=== PATIENT | male | born 1945 | race Caucasian/White ===

== ENCOUNTER 2018-03-10 12:02 | Emergency (ER) | payer MEDICARE, BC ==
[2018-03-10 12:51] LABS: ALBUMIN 3.8 g/dL (3.2-5.5); ALBUMIN/GLOBULIN RATIO 1.2 (1.0-2.2); BILIRUBIN,TOTAL 1.6 mg/dL (0.2-1.0); CALCIUM 9.1 mg/dL (8.5-10.3); TOTAL PROTEIN 6.9 g/dL (6.7-8.2)
[2018-03-10 13:00] LABS: BASOPHILS # (AUTO) 0.1 10^3/uL (0.0-0.1); BASOPHILS % (AUTO) 1.1 %; EOSINOPHILS # (AUTO) 0.2 10^3/uL (0.0-0.7); EOSINOPHILS % (AUTO) 3.3 %; HGB - HEMOGLOBIN 12.2 g/dL (14.0-18.0); LYMPHOCYTES # (AUTO) 0.8 10^3/uL (1.5-3.5); LYMPHOCYTES % (AUTO) 15.1 %; MEAN CORPUSCULAR HEMOGLOBIN 22.2 pg (27.0-31.0); MEAN CORPUSCULAR HGB CONC 32.4 g/dL (32.0-36.0); MEAN CORPUSCULAR VOLUME 68.4 fL (80.0-94.0); MEAN PLATELET VOLUME 9.8 fL (7.4-11.4); MONOCYTES # (AUTO) 0.5 10^3/uL (0.0-1.0); MONOCYTES % (AUTO) 8.1 %; NEUTROPHILS # (AUTO) 4.1 10^3/uL (1.5-6.6); NEUTROPHILS % (AUTO) 72.4 %; PLT - PLATELET COUNT 185 10^3/uL (130-450); RED BLOOD COUNT 5.51 10^6/uL (4.70-6.10); RED CELL DISTRIBUTION WIDTH 16.7 % (12.0-15.0); WHITE BLOOD COUNT 5.6 x10^3/uL (4.8-10.8)
--- NOTE | 2018-03-10 13:06 | ED Physician Documentation ---
PD HPI FOCAL NEURO - Stated complaint Stated Complaint: UNABLE TO SPEAK - Chief complaint Chief Complaint: Neuro - History obtained from History obtained from: Patient, Friend - History of Present Illness Timing - onset: Today Timing - duration: Minutes Timing - details: Now resolved Time of symptom onset unknown: Time of onset unknown Severity of deficit: Mild Contributing factors: negative: Anticoagulated, Vascular dz, Atrial fibrillation Baseline status: positive: A&OX3, ambulatory, indep Similar symptoms before: Has not had sx before Recently seen: Not recently seen - Additional information Additional information: Patient is a 72 year old male with no significant past medical history who is presenting to the emergency department an episode of aphasia this morning. According to patient and family when the patient woke up this morning he was reading the paper and having coffee with his , the states that he was just staring at her. She would ask him questions but he would not say anything. Patient states that he could think of the words but nothing would come out. wanted to come to the emergency department but patient did not want to come. patient went back to bed. When patient got back up he was feeling better but family decided to come get evaluated. Upon initial evaluation in the emergency department patient's symptoms had resolved. Review of Systems Ten Systems: 10 systems reviewed and negative PD PAST MEDICAL HISTORY - Present Medications Home Medications: Ambulatory Orders Medication Instructions Recorded Confirmed Tamsulosin [Flomax] 0.4 mg PO DAILY #30 capsule 03/10/18 - Allergies Allergies/Adverse Reactions: Allergies Allergy/AdvReac Type Severity Reaction Status Date / Time Penicillins Allergy Unknown Verified 03/10/18 12:12 PD ED PE NORMAL - Vitals Vital signs reviewed: Yes - General General: Alert and oriented X 3, No acute distress - HEENT HEENT: Atraumatic, PERRL, Moist mucous membranes - Neck Neck: Supple, no meningeal sign - Cardiac Cardiac: RRR, No murmur - Respiratory Respiratory: No respiratory distress, Clear bilaterally - Abdomen Abdomen: Soft, Non tender, Non distended - Derm Derm: Normal color, Warm and dry, No rash - Extremities Extremities: No deformity - Neuro Neuro: Alert and oriented X 3, ticket manager 2-12 intact, No motor deficit, No sensory deficit, Normal speech Eye Opening: Spontaneous Motor: Obeys Commands Verbal: Oriented GCS Score: 15 - Psych Psych: Normal mood NIHSS - Time Time: 12:44 - Level of Consciousness Level of consciousness: (0) Alert, Keenly responsive LOC Questions: (0) Answers both Q's correct LOC Commands: (0) Performs both correctly - Gaze Best Gaze: (0) Normal - Visual Visual: (0) No loss - Facial Palsy Facial Palsy: (0) Normal, symmetrical movement - Motor Arms (both separate) Motor Arm (right): (0) No drift Motor Arm (left): (0) No drift - Motor Legs (both separate) Motor Leg (right): (0) No drift Motor Leg (left): (0) No drift - Limb Ataxia Limb Ataxia: (0) Absent - Sensory Sensory: (0) Normal - Best Language Best Language: (0) No aphasia - Dysarthria Dysarthria: (0) Normal - Extinction and Inattention (formally neg Extinction and inattention: (0) No abnormality - Total Score/Results Total Score/Result: 0 Results - Vitals Vitals: Vital Signs - 24 hr 03/10/18 03/10/18 12:07 13:43 Temperature 36.4 C L Heart Rate 65 59 L Respiratory 20 16 Rate Blood Pressure 138/69 H 139/76 H O2 Saturation 97 96 Oxygen O2 Source Room air - EKG (time done) 1200 Rate: Rate (enter#) (62) Rhythm: NSR Chrisney: Normal Intervals: Normal VA QRS: Normal Ischemia: Normal ST segments Compare to prior EKG: Old EKG unavailable Computer interpretation: Agree with computer - Labs Labs: Laboratory Tests 03/10/18 03/10/18 03/10/18 12:26 12:26 12:26 WBC RBC Hgb Hct MCV MCH MCHC RDW Plt Count MPV Neut # (Auto) Lymph # (Auto) Sargent # (Auto) Eos # (Auto) Baso # (Auto) Absolute Nucleated RBC Nucleated RBC % Sodium 138 Potassium 4.3 Chloride 108 Carbon Dioxide 25 Anion Gap 5.0 L BUN 28 H Creatinine 1.0 Estimated GFR (MDRD) 73 L Glucose 127 H Calcium 9.1 Total Bilirubin 1.6 H AST 30 ALT 23 Alkaline Phosphatase 66 Troponin I < 0.04 B-Natriuretic Peptide Total Protein 6.9 Albumin 3.8 Globulin 3.1 Albumin/Globulin Ratio 1.2 Lipase 30 TSH 1.21 Urine Color Urine Clarity Urine pH Ur Specific [place] Urine Protein Urine Glucose (UA) Urine Ketones Urine Occult Blood Urine Nitrite Urine Bilirubin Urine Urobilinogen Ur Leukocyte Esterase Ur Microscopic Review Urine Culture Comments 03/10/18 03/10/18 03/10/18 12:46 12:46 13:25 WBC 5.6 RBC 5.51 Hgb 12.2 L Hct 37.7 L MCV 68.4 L MCH 22.2 L MCHC 32.4 RDW 16.7 H Plt Count 185 MPV 9.8 Neut # (Auto) 4.1 Lymph # (Auto) 0.8 L [place] # (Auto) 0.5 Eos # (Auto) 0.2 Baso # (Auto) 0.1 Absolute Nucleated RBC 0.01 Nucleated RBC % 0.1 Sodium Potassium Chloride Carbon Dioxide Anion Gap BUN Creatinine Estimated GFR (MDRD) Glucose Calcium Total Bilirubin AST ALT Alkaline Phosphatase Troponin I B-Natriuretic Peptide 124 H Total Protein Albumin Globulin Albumin/Globulin Ratio Lipase TSH Urine Color YELLOW Urine Clarity CLEAR Urine pH 5.5 Ur Specific [place] 1.025 Urine Protein NEGATIVE Urine Glucose (UA) NEGATIVE Urine Ketones NEGATIVE Urine Occult Blood NEGATIVE Urine Nitrite NEGATIVE Urine Bilirubin NEGATIVE Urine Urobilinogen 0.2 (NORMAL) Ur Leukocyte Esterase NEGATIVE Ur Microscopic Review NOT INDICATED Urine Culture Comments NOT INDICATED - Rads (name of study) ct head Radiology: Final report received (no acute intracranial pathology) PD MEDICAL DECISION MAKING - ED course Complexity details: reviewed old records, reviewed results, re-evaluated patient , considered differential, d/w patient, d/w family ED course: patient was seen and examined at bedside. Patient was well appearing and had no deficits at this time. ekg was performed and showed no acute abnormalities. labs were drawn, ct head was ordered. When patient returned from imaging the results were reviewed. there was no acute abnormalities. Patient's other diagnostics were all within normal limits. Ample time was given to the patient and the family to ask and answer questions. patient required no further inpatient work up at this time and was stable for discharge with outpatient follow up. - Sepsis Event Vital Signs: Vital Signs - 24 hr 03/10/18 03/10/18 12:07 13:43 Temperature 36.4 C L Heart Rate 65 59 L Respiratory 20 16 Rate Blood Pressure 138/69 H 139/76 H O2 Saturation 97 96 Oxygen O2 Source Room air Departure - Departure Disposition: 01 Home, Self Care Clinical Impression: Altered mental status Condition: Good Instructions: ED Transient Ischemic Attack Follow-Up: primary,care provider [Other] - As Needed Prescriptions: Tamsulosin [Flomax] 0.4 mg PO DAILY #30 capsule Comments: Your diagnostics today were within normal limits. there were no major abnormalities on your blood work and you CT of your head was normal. It is difficult to say exactly if this was a TIA (mini stroke) or you were overly tired. You should start a baby aspirin daily. I will also start you on flomax to help with your urination. You should seek the care of a primary care physician. You should return to the emergency department at any time for new, worsening or uncontrollable symptoms. Discharge Date/Time: 03/10/18 14:02
--- NOTE | 2018-03-10 13:17 | CT Report ---
Procedure Date: 03/10/2018 Accession Number: [id number] / [id number] Procedure: CT - Head W/O CPT Code: FULL RESULT: EXAM: CT HEAD EXAM DATE: 03/10/2018 01:08 PM. CLINICAL HISTORY: Aphasia COMPARISON: None. TECHNIQUE: Multiaxial CT images were obtained from the foramen magnum to the vertex. Reformats: Coronal. IV contrast: None. In accordance with CT protocol optimization, one or more of the following dose reduction techniques were utilized for this exam: automated exposure control, adjustment of mA and/or KV based on patient size, or use of iterative reconstructive technique. FINDINGS: Parenchyma: No intraparenchymal hemorrhage. No evidence of mass, midline shift, or CT findings of infarction. Sanchez-white differentiation is distinct. Extraaxial Spaces: Normal for age. No subdural or epidural collections identified. Ventricles: Normal in size and position. Sinuses and Orbits: Mild mucosal thickening, otherwise the imaged paranasal sinuses, orbits, and mastoids show no significant abnormality. Bones: No evidence of fracture or calvarial defect. Other: None. IMPRESSION: 1. No acute intracranial abnormality. 2. Mild mucosal thickening in the visualized paranasal sinuses. RADIA
[2018-03-10 13:31] LABS: BILIRUBIN,URINE NEGATIVE (NEGATIVE); CLARITY,URINE CLEAR (CLEAR); GLUCOSE, URINE (UA) NEGATIVE (NEGATIVE); KETONES,URINE (UA) NEGATIVE (NEGATIVE); LEUKOCYTE ESTERASE, URINE NEGATIVE (NEGATIVE); NITRITE,URINE NEGATIVE (NEGATIVE); OCCULT BLOOD,URINE NEGATIVE (NEGATIVE); PH,URINE 5.5 PH (5.0-7.5); PROTEIN,URINE NEGATIVE (NEGATIVE); UROBILINOGEN,URINE 0.2 (NORMAL) E.U./dL (NORMAL)
[2018-03-10 13:44] VITALS: BP 139/76
== END 2018-03-10 14:02 | disposition home or self-care (01) ==
LOC: ED 12:02
DX: R41.82 Altered mental status, unspecified (principal); R47.01 Aphasia
CPT/HCPCS: 36415; 70450; 80053; 81001; 81003; 83690; 83880; 84443; 84484; 85025; 87086; 93005; 99283; 99284

== ENCOUNTER 2018-04-24 15:29 | Observation (INO) | payer MEDICARE, BC ==
[2018-04-24 16:16] LABS: BASOPHILS # (AUTO) 0.1 10^3/uL (0.0-0.1); BASOPHILS % (AUTO) 0.6 %; EOSINOPHILS # (AUTO) 0.2 10^3/uL (0.0-0.7); EOSINOPHILS % (AUTO) 2.8 %; HGB - HEMOGLOBIN 12.9 g/dL (14.0-18.0); LYMPHOCYTES # (AUTO) 1.1 10^3/uL (1.5-3.5); LYMPHOCYTES % (AUTO) 13.6 %; MEAN CORPUSCULAR HEMOGLOBIN 22.1 pg (27.0-31.0); MEAN CORPUSCULAR HGB CONC 32.8 g/dL (32.0-36.0); MEAN CORPUSCULAR VOLUME 67.5 fL (80.0-94.0); MEAN PLATELET VOLUME 10.1 fL (7.4-11.4); MONOCYTES # (AUTO) 0.5 10^3/uL (0.0-1.0); MONOCYTES % (AUTO) 6.7 %; NEUTROPHILS # (AUTO) 6.2 10^3/uL (1.5-6.6); NEUTROPHILS % (AUTO) 76.3 %; PLT - PLATELET COUNT 196 10^3/uL (130-450); RED BLOOD COUNT 5.81 10^6/uL (4.70-6.10); RED CELL DISTRIBUTION WIDTH 16.7 % (12.0-15.0); WHITE BLOOD COUNT 8.1 x10^3/uL (4.8-10.8)
--- NOTE | 2018-04-24 16:19 | XRAY Report ---
Procedure Date: 04/24/2018 Accession Number: [id number] / [id number] Procedure: XR - Chest 1 View X-Ray CPT Code: 55992 FULL RESULT: EXAM: CHEST RADIOGRAPHY EXAM DATE: 04/24/2018 04:08 PM. CLINICAL HISTORY: New onset afib. COMPARISON: None. TECHNIQUE: 1 view. FINDINGS: Lungs/Pleura: No focal opacities evident. No pleural effusion. No pneumothorax. Mediastinum: Within exam limitations, the cardiomediastinal contour is normal. Other: None. IMPRESSION: Negative for an acute cardiopulmonary process. RADIA
[2018-04-24 16:20] LABS: ALBUMIN 3.6 g/dL (3.2-5.5); ALBUMIN/GLOBULIN RATIO 1.3 (1.0-2.2); BILIRUBIN,TOTAL 1.8 mg/dL (0.2-1.0); CALCIUM 9.1 mg/dL (8.5-10.3); CREATININE 0.9 mg/dL (0.6-1.2); TOTAL PROTEIN 6.4 g/dL (6.7-8.2)
[2018-04-24 16:47] LABS: PLATELET MORPHOLOGY 2+ GIANT PLATELETS (NORMAL)
[2018-04-24 16:48] LABS: PLATELET ESTIMATE, MANUAL NORMAL (130-450,000) (NORMAL)
--- NOTE | 2018-04-24 17:04 | ED Physician Documentation ---
History of Present Illness - Stated complaint Stated Complaint: DIZZINESS - Chief complaint Chief Complaint: Neuro - Additonal information Additional information: hx from pt 73 male to ED with numerous episodes of near syncope today (no fall or injury) and paresthesias to soles of both feet for a week no pain - no [employer] CP AP no fever cough dyspnea no palp was seen mid February for neuro issues and dx possible TIA and started on asa and advised to fup PMD Review of Systems Constitutional: denies: Fever, Chills Eyes: denies: Loss of vision Cardiac: denies: Chest pain / pressure Respiratory: denies: Dyspnea GI: denies: Abdominal Pain, Nausea, Vomiting Musculoskeletal: denies: Neck pain, Back pain Neurologic: reports: Numbness (feet), Near syncope Endocrine: denies: Easy bruising / bleeding Immunocompromised: denies: Immunocompromised PD PAST MEDICAL HISTORY - Past Medical History Past Medical History: Yes Neuro: TIA - Past Surgical History Past Surgical History: No - Present Medications Home Medications: Ambulatory Orders Medication Instructions Recorded Confirmed Tamsulosin [Flomax] 0.4 mg PO DAILY #30 capsule 03/10/18 Aspirin 81 mg PO 04/24/18 - Allergies Allergies/Adverse Reactions: Allergies Allergy/AdvReac Type Severity Reaction Status Date / Time Anesthetics - Amide Type Allergy Anaphylaxis Verified 04/24/18 15:40 Anesthetics - Mercedes Type- Allergy Anaphylaxis Verified 04/24/18 15:40 Parabens Penicillins Allergy Unknown Verified 03/10/18 12:12 - Social History Does the pt smoke?: No Smoking Status: Never smoker Does the pt drink ETOH?: Yes Does the pt have substance abuse?: No - POLST Patient has POLST: No PD ED PE NORMAL - Vitals Vital signs reviewed: Yes - General General: Alert and oriented X 3 - HEENT HEENT: PERRL - Neck Neck: Supple, no meningeal sign - Cardiac Cardiac: Other (irreg, + murmur) - Respiratory Respiratory: Clear bilaterally - Abdomen Abdomen: Soft, Non tender - Neuro Neuro: Alert and oriented X 3, pt skilled 2-12 intact, No motor deficit, No sensory deficit, Normal speech, Other (NIHSS zero) Eye Opening: Spontaneous Motor: Obeys Commands Verbal: Oriented GCS Score: 15 Results - Vitals Vitals: Vital Signs - 24 hr 04/24/18 04/24/18 15:33 17:24 Temperature 36.5 C Heart Rate 78 96 Respiratory 16 20 Rate Blood Pressure 172/81 H 125/84 H O2 Saturation 98 98 Oxygen O2 Source Room air - EKG (time done) 1541 Rate: Rate (enter#) (89) Rhythm: Atrial fibrillation Ischemia: Normal ST segments - Labs Labs: Laboratory Tests 04/24/18 04/24/18 04/24/18 15:55 15:55 15:55 WBC 8.1 RBC 5.81 Hgb 12.9 L Hct 39.2 L MCV 67.5 L MCH 22.1 L MCHC 32.8 RDW 16.7 H Plt Count 196 MPV 10.1 Neut # (Auto) 6.2 Lymph # (Auto) 1.1 L [place] # (Auto) 0.5 Eos # (Auto) 0.2 Baso # (Auto) 0.1 Absolute Nucleated RBC 0.01 Nucleated RBC % 0.1 Manual Slide Review Indicated Platelet Estimate NORMAL (130-450,000) Platelet Morphology 2+ GIANT PLATELETS RBC Morph Micro Appear 2+ MICROCYTOSIS Sodium 139 Potassium 3.9 Chloride 108 Carbon Dioxide 23 Anion Gap 8.0 BUN 23 H Creatinine 0.9 Estimated GFR (MDRD) 83 L Glucose 137 H Calcium 9.1 Total Bilirubin 1.8 H AST 30 ALT 23 Alkaline Phosphatase 64 Troponin I < 0.04 Total Protein 6.4 L Albumin 3.6 Globulin 2.8 Albumin/Globulin Ratio 1.3 Lipase 28 - Rads (name of study) CTH Radiology: See rad report (neg) CXR Radiology: See rad report (NACPD) PD MEDICAL DECISION MAKING - ED course ED course: new onset a fib and new heart murmur with numerous episodes of near syncope he does not feel the palp so unsure duration of a fib and not anticoagulated so not safe to cardiovert will admit for echo and perhaps MRI given dizziness and paresthesias spoke to hospitalist at 6 PM pt updated as well - Sepsis Event Vital Signs: Vital Signs - 24 hr 04/24/18 04/24/18 15:33 17:24 Temperature 36.5 C Heart Rate 78 96 Respiratory 16 20 Rate Blood Pressure 172/81 H 125/84 H O2 Saturation 98 98 Oxygen O2 Source Room air Departure - Departure Disposition: ED Place in Observation Clinical Impression: Near syncope, Heart murmur A-fib Qualifiers: Atrial fibrillation type: unspecified Qualified Code(s): I48.91 - Unspecified atrial fibrillation
--- NOTE | 2018-04-24 17:42 | CT Report ---
Procedure Date: 04/24/2018 Accession Number: [id number] / [id number] Procedure: CT - Head W/O CPT Code: FULL RESULT: EXAM: CT HEAD EXAM DATE: 04/24/2018 05:25 PM. CLINICAL HISTORY: Near syncope paresthesia new a fib. COMPARISON: HEAD W/O 03/10/2018. TECHNIQUE: Multiaxial CT images were obtained from the foramen magnum to the vertex. Reformats: Sagittal and coronal. IV contrast: None. In accordance with CT protocol optimization, one or more of the following dose reduction techniques were utilized for this exam: automated exposure control, adjustment of mA and/or KV based on patient size, or use of iterative reconstructive technique. FINDINGS: Parenchyma: No intraparenchymal hemorrhage. No evidence of mass, midline shift, or CT findings of infarction. Sanchez-white differentiation is distinct. Extraaxial Spaces: Normal for age. No subdural or epidural collections identified. Ventricles: Normal in size and position. Sinuses and Orbits: Imaged paranasal sinuses, orbits, and mastoids show no significant abnormality. Bones: No evidence of fracture or calvarial defect. Other: None. IMPRESSION: Negative nonenhanced head CT. RADIA
[2018-04-24] MEDS ORDERED: ONDANSETRON 4 MG/2 ML VIAL IVP PRN (18:36)
[2018-04-24] MEDS ORDERED: SODIUM CHLORIDE FLUSH 0.9% 10 ML SYRINGE IVP PRN (18:36)
[2018-04-24] MEDS ORDERED: ACETAMINOPHEN 325 MG TABLET PO PRN (18:36)
[2018-04-24] MEDS ORDERED: SODIUM CHLORIDE 0.9% 1,000 ML IV SCH (19:00)
--- NOTE | 2018-04-24 19:08 | HISTORY & PHYSICAL EXAMINATION ---
Chief Complaint - Chief Complaint Chief Complaint: dizziness and lightheaded History of Present Illness - Admitted From Admitted From:: ER - History Obtained From History obtained from: Pt - History of Present Illness HPI Comment/Other: is 73-yrs-old male with a H significance for recent diagnosis of BPH, TIA, who present ER complaints of dizziness, lightheaded, near syncope and paresthesia. Pt report he recently felt very tired every morning. Yesterday when he went to bathroom, he felt so dizziness, lightheaded, near syncope but he denies he had fall, no any injury. He report he went to ER about one month ago, he was diagnosis of TIA at that time. Then he was discharged with aspirin 81 mg daily. He did not have TIA workup at that time per pt report. pt also report he had tingling feeling on the bilateral foot, slow speech. EKG reveals pt had new onset of Afib. pt had EKG about one month ago when he visited ER, it showed SR, no Afib. Pt denies chest pain, palpitation, shortness of breath, fever, chill, cough, headache. History - Past Medical History Neuro: reports: TIA MRSA Hx?: No - Family & Social History Family History: Mother: , Father: , CVA/TIA Family History Comment/Other: pt is living with his at [place]. pt had two children. Living arrangement: At home Living Situation: With spouse/s.o. Social History Notes: pt denies cigarette smoker, alcohol and drug abuse - Substance History Use: Uses substance without health or social issues: NONE - POLST Patient has POLST: No POLST Status: Full Code Meds/Allgy - Home Medications Home Medications: Ambulatory Orders Medication Instructions Recorded Confirmed Tamsulosin [Flomax] 0.4 mg PO DAILY #30 capsule 03/10/18 04/24/18 Aspirin 81 mg PO DAILY 04/24/18 04/25/18 - Allergies Allergies/Adverse Reactions: Allergies Allergy/AdvReac Type Severity Reaction Status Date / Time Anesthetics - Amide Type Allergy Anaphylaxis Verified 04/24/18 15:40 Anesthetics - Mercedes Type- Allergy Anaphylaxis Verified 04/24/18 15:40 Parabens Penicillins Allergy Unknown Verified 03/10/18 12:12 Review of Systems - Constitutional Constitutional: denies: Fatigue, Fever, Chills, Malaise, Weakness, Poor appetite , Diaphoresis, Night sweats - Eyes Eyes: denies: Pain, Irritation, Amaurosis, Blurred vision, Spots in vision, Field loss, Vision loss, Dipolpia - Ears, Nose & Throat Ears, Nose & Throat: denies: Ear pain, Hearing loss, Hearing aids, Tinnitus, Vertigo, Nasal pain, Nasal discharge, Nosebleeds, Nasal obstruction, Postnasal drainage, Dentures, Sore throat, Hoarseness, Mouth lesions, Bleeding gums, Dental decay, Dental pain - Cardiovascular Cariovascular: reports: Lightheadedness, Syncope. denies: Irregular heart rate , Palpitations, Chest pain, Edema, Exertional dyspnea, Decr. exercise tolerance , Orthopnea - Respiratory Respiratory: denies: Cough, Sputum production, Wheezing, Snoring, Hemoptysis, Orthopnea, SOB at rest, SOB with exertion - Gastrointestinal Gastrointestinal: denies: Abdominal pain, Abdominal distention, Constipation, Diarrhea, Change in bowel habits, Rectal bleeding, Black stools, Bloody stools, Nausea, Vomiting, Bile emesis, Coffee grounds emesis, Reflux/heartburn, Bloating - Genitourinary Genitourinary: denies: Dysuria, Frequency, Urgency, Hematuria, Incontinence, Flank pain, Nocturia, Urethral discharge - Musculoskeletal Musculoskeletal: denies: Muscle pain, Back pain, Muscle aches, Stiffness, Limited range of motion, Muscle weakness, Gout, Joint pain - Integumentary Integumentary: denies: Rash, Pruritis, Lesions, Dryness, Lumps, Acne, Pigment changes, Nail changes - Neurological Neurological: reports: Dizziness, Other (tingle at bilateral of foot). denies: General weakness, Focal weakness, Headache, Numbness, Memory problems, Pre- existing deficit, Abnormal gait, Seizures, Incoordination, Slurred speech - Psychiatric Psychiatric: denies: Depression, Anxiety, Suicidal, Delusions, Hallucinations, Homicidal - Endocrine Endocrine: denies: Polyuria, Polydypsia, Polyphagia, Intolerance to cold - Hematologic/Lymphatic Hematologic/Lymphatic: denies: Anemia, Bruising, Petechiae, Blood clots, Lymphadenopathy, Bleeding tendencies Exam - Vital Signs Reviewed Vital Signs: Yes - Physical Exam General Appearance: positive: No acute distress, Alert. negative: Lethargic Eyes Bilateral: positive: Normal inspection, PERRL, No lid inflammation, Conjunctivae nml ENT: positive: ENT inspection nml, Pharynx nml, No signs of dehydration. negative: Purulent nasal drainage, Pharyngeal erythema, Oral lesions Neck: positive: Nml inspection, Thyroid nml, No JVD, Trachea midline. negative : Thyromegaly, Lymphadenopathy (R), Lymphadenopathy (L), Stiff neck, Carotid bruit, Swelling/bruising, Tracheal deviation Respiratory: positive: Chest non-tender, No respiratory distress, Breath sounds nml. negative: Wheezes, Rhonchi Cardiovascular: positive: Regular rate & rhythm, Diastolic murmur. negative: No gallop, Irregularly irregular, Extrasystoles, Tachycardia, Bradycardia, JVD present, Systolic murmur Peripheral Pulses: positive: 2+ Abdomen: positive: Non-tender, No organomegaly, Nml bowel sounds, No distention. negative: Tenderness, Guarding, Rebound Back: positive: Nml inspection. negative: CVA tenderness (R), CVA tenderness (L ) Skin: positive: Color nml, No rash, Warm, Dry. negative: Cyanosis, Diaphoresis , Pallor Extremities: positive: Non-tender, Full ROM, Nml appearance. negative: Calf tenderness, Joint swelling, Makenzie's sign/cords Neurologic/Psychiatric: positive: Oriented x3, Motor nml, Sensation nml, Mood/ affect nml. negative: Weakness, Sensory loss, Facial droop, Slurred/abnml speech, Depressed mood/affect Conclusion/Plan - Problem List (1) Near syncope Conclusion/Plan: pt report near syncope, but no injury or loss of consciousness. EKG reveal new onset of Afib order ECHO, pt also complain tingle neurological symptoms, order US of Carotid, and MRI of brain tele, vital monitor orthostatic BP check (2) A-fib Conclusion/Plan: unknown exact time pt start to have new onset of Afib. start Xarelto for 3-4 weeks, follow up [facility] for possible conversion pt's HR is around 90-100 at rest, start low dosage of Cardizem 30mg QID Qualifiers: Atrial fibrillation type: unspecified Qualified Code(s): I48.91 - Unspecified atrial fibrillation (3) Heart murmur Conclusion/Plan: order ECHO, follow up (4) Distal paresthesia Conclusion/Plan: pt had TIA about one month ago, but without MRI, pt complaint parethesia and with near syncope order MRI, follow up (5) Hx of TIA (transient ischemic attack) and stroke Conclusion/Plan: pt did not have TIA workup, pt present parethesia and syncope near today order MRI, ECHO, US of carotid (6) BPH (benign prostatic hyperplasia) Conclusion/Plan: resume Flomax (7) DVT prophylaxis Conclusion/Plan: SCD and Lovenox (8) Full code status Conclusion/Plan: pt request full code - Lab Results Fish Bones: 04/25/18 07:35 04/25/18 07:35 Core Measures - Anticipated LOS I expect patient to be DC'd or transferred within 96 hours.: Yes - DVT/VTE - Prophylaxis VTE/DVT Device ordered at admit?: Yes VTE/DVT Prophylaxis med ordered at admit?: Yes
[2018-04-25] MEDS: TAMSULOSIN 0.4 MG CAPSULE PO SCH ×2 (01:09→08:08)
--- NOTE | 2018-04-25 01:23 | Ultrasound Report ---
Procedure Date: 04/25/2018 Accession Number: [id number] Procedure: US - Carotid Doppler Complete CPT Code: FULL RESULT: EXAM: BILATERAL CAROTID AND VERTEBRAL ARTERY DUPLEX DOPPLER ULTRASOUND: EXAM DATE: 04/24/2018 11:30 PM CLINICAL HISTORY: Near syncope. COMPARISON: None. TECHNIQUE: Grayscale imaging, color Doppler, and duplex spectral Doppler were used to evaluate the carotid and vertebral arteries bilaterally. Static images were obtained. FINDINGS: Mild calcified plaque within the carotid bulbs bilaterally. Peak systolic velocities and ICA/CCA ratios are within normal limits. Normal antegrade flow is present in bilateral vertebral arteries. VELOCITIES (cm/sec): Right: RCCA Prox: PSV 82.8 cm/sec. RCCA Dist: PSV 63.5 cm/sec, EDV 18.4 cm/sec. RECA: PSV 96.6 cm/sec. R Bulb: PSV 48.6 cm/sec, EDV 18.9 cm/sec, ICA/CCA ratio 0.8. CHANO Prox: PSV 67.9 cm/sec, EDV 32.5 cm/sec, ICA/CCA ratio 1.1. CHANO Mid: PSV 96.0 cm/sec, EDV 38.3 cm/sec, ICA/CCA ratio 1.5. CHANO Dist: PSV 67.9 cm/sec, EDV 37.5 cm/sec, ICA/CCA ratio 1.0. RVA: PSV 24.9 cm/sec. RVA flow direction: Antegrade. Left: LCCA Prox: PSV 93.3 cm/sec. LCCA Dist: PSV 60.6 cm/sec, EDV 22.4 cm/sec. LECA: PSV 72.9 cm/sec. L Bulb: PSV 46.2 cm/sec, EDV 23.1 cm/sec, ICA/CCA ratio 0.8. LICA Prox: PSV 52.7 cm/sec, EDV 18.8 cm/sec, ICA/CCA ratio 0.9. LICA Mid: PSV 69.3 cm/sec, EDV 36.8 cm/sec, ICA/CCA ratio 1.1. LICA Dist: PSV 58.5 cm/sec, EDV 18.8 cm/sec, ICA/CCA ratio 1.0. LVA: PSV 33 cm/sec. LVA flow direction: Antegrade. ICA diameter stenosis: Right: <50% by velocity and <70% by NASCET criteria. Left: <50% by velocity and <70% by NASCET criteria. IMPRESSION: 1. Mild bilateral carotid bulb atheromatous plaque. 2. In the right carotid artery there are no elevated carotid artery velocities to suggest hemodynamically significant stenosis. 3. In the left carotid artery there are no elevated carotid artery velocities to suggest hemodynamically significant stenosis. 4. Normal antegrade flow is present in bilateral vertebral arteries. General Recommendations: Stenosis =50% ICA - Follow-up ultrasound 6-12 months Stenosis <50% ICA - High Risk Patient with plaque - Follow-up ultrasound 1-2 years Normal Study but High Risk Patient - Follow-up ultrasound 3-5 years Management recommendations and diagnostic criteria are based on current IAC endorsed standards in Carotid Artery Stenosis: Grayscale and Doppler Ultrasound Diagnosis. Validated velocity measurements with angiographic measurements and velocity criteria are extrapolated from diameter data as defined by the Society of Radiologists in Ultrasound Consensus Conference Radiology 2003; 229;340-346. RADIA
[2018-04-25] MEDS: SODIUM CHLORIDE FLUSH 0.9% 10 ML SYRINGE IVP SCH ×2 (05:46→08:09)
[2018-04-25 07:49] LABS: BASOPHILS # (AUTO) 0.1 10^3/uL (0.0-0.1); BASOPHILS % (AUTO) 1.1 %; EOSINOPHILS # (AUTO) 0.2 10^3/uL (0.0-0.7); EOSINOPHILS % (AUTO) 3.3 %; LYMPHOCYTES # (AUTO) 1.3 10^3/uL (1.5-3.5); LYMPHOCYTES % (AUTO) 19.5 %; MEAN CORPUSCULAR VOLUME 68.6 fL (80.0-94.0); MEAN PLATELET VOLUME 9.8 fL (7.4-11.4); MONOCYTES # (AUTO) 0.4 10^3/uL (0.0-1.0); MONOCYTES % (AUTO) 6.9 %; NEUTROPHILS # (AUTO) 4.5 10^3/uL (1.5-6.6); NEUTROPHILS % (AUTO) 69.2 %; PLT - PLATELET COUNT 174 10^3/uL (130-450); RED BLOOD COUNT 5.94 10^6/uL (4.70-6.10); RED CELL DISTRIBUTION WIDTH 16.7 % (12.0-15.0); WHITE BLOOD COUNT 6.4 x10^3/uL (4.8-10.8)
[2018-04-25 07:59] LABS: ALBUMIN 3.5 g/dL (3.2-5.5); ALBUMIN/GLOBULIN RATIO 1.3 (1.0-2.2); BILIRUBIN,TOTAL 2.7 mg/dL (0.2-1.0); CREATININE 0.9 mg/dL (0.6-1.2); TOTAL PROTEIN 6.3 g/dL (6.7-8.2)
[2018-04-25] MEDS ORDERED: TAMSULOSIN 0.4 MG CAPSULE PO SCH (08:16)
[2018-04-25] MEDS ORDERED: ENOXAPARIN 40 MG/0.4 ML SYRINGE SUBQ SCH (09:00)
[2018-04-25] MEDS ORDERED: FAMOTIDINE 20 MG TABLET PO SCH (09:00)
[2018-04-25] MEDS ORDERED: ASPIRIN 325 MG TABLET PO SCH (09:00)
[2018-04-25] MEDS ORDERED: POLYETHYLENE GLYCOL 3350 17 GM PACKET PO SCH (09:00)
[2018-04-25 10:32] LABS: MEAN RETIC VALUE 93.8; RED BLOOD COUNT 5.96 10^6/uL (4.70-6.10)
[2018-04-25 11:02] LABS: % IRON SATURATION 39 % (20-50); IRON 127 ug/dL (45-182); TOTAL IRON BINDING CAPACITY 326 ug/dL (250-450); TRANSFERRIN 233 mg/dL (180-329)
[2018-04-25 11:09] LABS: FERRITIN 262.6 ng/mL (23.9-336.2)
[2018-04-25] MEDS: FERROUS SULFATE 325 MG TABLET PO SCH ×2 (11:45→16:35)
--- NOTE | 2018-04-25 11:53 | MRI Report ---
Procedure Date: 04/25/2018 Accession Number: [id number] / [id number] Procedure: MRI - Brain W/O CPT Code: FULL RESULT: EXAM: MRI BRAIN WITHOUT CONTRAST EXAM DATE: 04/25/2018 11:22 AM. CLINICAL HISTORY: 73-year-old man with TIA. Patient complains of dizziness and lethargy. COMPARISON: Noncontrast head CT on 04/24/2018. TECHNIQUE: Multiplanar, multisequence T1-weighted and fluid-sensitive MR sequences of the brain were performed. Sequences optimized for routine evaluation. Other: None. IV Contrast: None. FINDINGS: Parenchyma: No evidence of acute infarct on diffusion weighted sequence. The parenchyma demonstrates minimal burden of nonspecific FLAIR hyperintensities in the deep cerebral and periventricular white matter, less than commonly seen in this age group. The infratentorial parenchyma is normal in appearance. No evidence of prior hemorrhage on susceptibility weighted sequence. Pituitary: Unremarkable. Ventricles and Extra-axial Spaces: Ventricles are symmetric and normal in size for age. Extra-axial spaces are unremarkable. Orbits: Unremarkable. Sinuses: Mild scattered mucosal thickening is present in the paranasal sinuses. Mastoid air cells are clear. Major Vascular Flow Voids: Intact. IMPRESSION: 1. No acute intracranial abnormality. Specifically, no evidence of acute infarct, hemorrhage, or mass lesion. RADIA
[2018-04-25] MEDS ORDERED: diltiaZEM 30 MG TABLET PO SCH (14:00)
--- NOTE | 2018-04-25 16:08 | Discharge Plan ---
Discharge Plan Disposition: Home, Self Care Condition: Poor Prescriptions: diltiaZEM CD [Cardizem Cd] 120 mg PO DAILY #15 capsule Rivaroxaban [Xarelto] 20 mg PO DAILY #30 tablet Diet: Regular Activity Restrictions: Activity as Tolerated Shower Restrictions: No (fall precaution) Instruction Topics: Atrial Fibrillation, Diltiazem tablets, Rivaroxaban oral tablets Additional Instructions or Follow Up instructions: You may follow up your PCP in one week, follow up spanish interpreter/translator as out-pt. Should your symptoms return or worsen, you may present ER or call 911 for help. No Smoking: If you smoke, Please STOP! Call for help. Follow-up with: Tim Ferreira MD [Primary Care Provider] -
--- NOTE | 2018-04-25 16:21 | DISCHARGE SUMMARY ---
Discharge Summary Discharge Date: 04/25/18 Discharging Provider: PORTER Primary Care Provider: Dr. Tim Ferreira Condition at Discharge: Poor Discharge Disposition: 01 Home, Self Care Discharge Facility Name: home - DIAGNOSES Admission Diagnoses: (1) Near syncope (2) A-fib (3) Heart murmur (4) Distal paresthesia (5) Hx of TIA (transient ischemic attack) and stroke (6) BPH (benign prostatic hyperplasia) Discharge Diagnoses with Status of Each Condition: (1) Near syncope no more in hospital course. pt's MRI of head, us of Carotid, Ct of head, ECHO are unremarkable (2) A-fib RVR new onset of afib. ER did not do cardiac conversion because unknown if any blood clots in heart chamber. HR has around 100, start 120mg Cardizem. Pt's CHADS score is 2/6 but pt is new onset of AFIB. Start on Xarelto, see chief scientist in one month, new onset afib may be converted (3) Heart murmur stable, ECHO unremarkable (4) Distal paresthesia resolved, MRI without acute findings (5) Hx of TIA (transient ischemic attack) and stroke stable.pt's MRI of head, us of Carotid, Ct of head, ECHO are unremarkable (6) BPH (benign prostatic hyperplasia) stable, continue flomax - HPI History of Present Illness: is 73-yrs-old male with a PMH significance for recent diagnosis of BPH, TIA, who present ER complaints of dizziness, lightheaded, near syncope and paresthesia. Pt report he recently felt very tired every morning. Yesterday when he went to bathroom, he felt so dizziness, lightheaded, near syncope but he denies he had fall, no any injury. He report he went to ER about one month ago, he was diagnosis of TIA at that time. Then he was discharged with aspirin 81 mg daily. He did not have TIA workup at that time per pt report. pt also report he had tingling feeling on the bilateral foot, slow speech. EKG reveals pt had new onset of Afib. pt had EKG about one month ago when he visited ER, it showed SR, no Afib. Pt denies chest pain, palpitation, shortness of breath, fever, chill, cough, headache. - ALLERGIES Allergies/Adverse Reactions: Allergies Allergy/AdvReac Type Severity Reaction Status Date / Time Anesthetics - Amide Type Allergy Anaphylaxis Verified 04/24/18 15:40 Anesthetics - Mercedes Type- Allergy Anaphylaxis Verified 04/24/18 15:40 Parabens Penicillins Allergy Unknown Verified 03/10/18 12:12 - MEDICATIONS Home Medications: Ambulatory Orders Medication Instructions Recorded Confirmed Tamsulosin [Flomax] 0.4 mg PO DAILY #30 capsule 03/10/18 04/24/18 Rivaroxaban [Xarelto] 20 mg PO DAILY #30 tablet 04/25/18 diltiaZEM CD [Cardizem Cd] 120 mg PO DAILY #15 capsule 04/25/18 - PHYSICAL EXAM AT DISCHARGE General Appearance: positive: No acute distress, Alert. negative: Lethargic Eyes Bilateral: positive: Normal inspection, PERRL, No lid inflammation, Conjunctivae nml ENT: positive: ENT inspection nml, Pharynx nml, No signs of dehydration. negative: Purulent nasal drainage, Pharyngeal erythema, Oral lesions Neck: positive: Nml inspection, Thyroid nml, No JVD, Trachea midline. negative : Thyromegaly, Lymphadenopathy (R), Lymphadenopathy (L), Stiff neck, Swelling/ bruising, Tracheal deviation Respiratory: positive: Chest non-tender, No respiratory distress, Breath sounds nml. negative: Wheezes, Rales, Rhonchi Cardiovascular: positive: Regular rate & rhythm, No murmur, No gallop. negative : Irregularly irregular, Extrasystoles, Tachycardia, Bradycardia, JVD present, Systolic murmur, Diastolic murmur Peripheral Pulses: positive: 2+ Abdomen: positive: Non-tender, No organomegaly, Nml bowel sounds, No distention. negative: Tenderness, Guarding, Rebound Back: positive: Nml inspection. negative: CVA tenderness (R), CVA tenderness (L ) Skin: positive: Color nml, No rash, Warm, Dry. negative: Cyanosis, Diaphoresis , Pallor, Skin rash Extremities: positive: Non-tender, Full ROM, Nml appearance. negative: Calf tenderness, Joint swelling, Makenzie's sign/cords Neurologic/Psychiatric: positive: Oriented x3, Motor nml, Sensation nml, Mood/ affect nml. negative: Weakness, Sensory loss, Facial droop, Slurred/abnml speech, Depressed mood/affect - LABS Result Diagrams: 04/25/18 07:35 04/25/18 07:35 - FOLLOW UP Follow Up: You may follow up your PCP in one week, follow up chief scientist as out-pt in one month. Should your symptoms return or worsen, you may present ER or call 911 for help. - TIME SPENT Time Spent in Discharge (Minutes): 50
[2018-04-25] MEDS ORDERED: RIVAROXABAN 10 MG TABLET PO SCH (17:00)
[2018-04-25 17:02] VITALS: BP 105/73
== END 2018-04-25 17:15 | disposition home or self-care (01) ==
LOC: ED 15:29 → MS2 18:36
PROVIDERS: ADMIT Nurse Practitioner Gerontology; ATTEND Nurse Practitioner Gerontology
DX: R55 Syncope and collapse (principal); I48.91 Unspecified atrial fibrillation; I38 Endocarditis, valve unspecified; R20.2 Paresthesia of skin; N40.0 Benign prostatic hyperplasia without lower urinary tract symptoms; Z79.82 Long term (current) use of aspirin; Z82.3 Family history of stroke; Z79.899 Other long term (current) drug therapy
CPT/HCPCS: 36415; 70450; 70551; 71045; 80053; 82607; 82728; 83540; 83615; 83690; 83735; 84443; 84466; 84484; 85025; 85044; 93005; 93306; 93880; 96360; 96361; 96372; 99284; A9270; G0378; J1650

== ENCOUNTER 2018-12-19 16:24 | Emergency (ER) | payer MEDICARE, BC ==
[2018-12-19 17:14] LABS: BASOPHILS # (AUTO) 0.1 10^3/uL (0.0-0.1); EOSINOPHILS # (AUTO) 0.2 10^3/uL (0.0-0.7); EOSINOPHILS % (AUTO) 2.9 %; HGB - HEMOGLOBIN 13.1 g/dL (14.0-18.0); LYMPHOCYTES % (AUTO) 16.4 %; MEAN CORPUSCULAR HEMOGLOBIN 21.5 pg (27.0-31.0); MEAN CORPUSCULAR HGB CONC 31.5 g/dL (32.0-36.0); MEAN CORPUSCULAR VOLUME 68.1 fL (80.0-94.0); MEAN PLATELET VOLUME 9.9 fL (7.4-11.4); MONOCYTES # (AUTO) 0.6 10^3/uL (0.0-1.0); MONOCYTES % (AUTO) 10.1 %; NEUTROPHILS # (AUTO) 4.3 10^3/uL (1.5-6.6); NEUTROPHILS % (AUTO) 69.6 %; PLT - PLATELET COUNT 184 10^3/uL (130-450); RED CELL DISTRIBUTION WIDTH 16.8 % (12.0-15.0); WHITE BLOOD COUNT 6.2 x10^3/uL (4.8-10.8)
[2018-12-19 17:25] LABS: ALBUMIN 3.9 g/dL (3.2-5.5); ALBUMIN/GLOBULIN RATIO 1.4 (1.0-2.2); BILIRUBIN,TOTAL 1.6 mg/dL (0.2-1.0); CALCIUM 8.9 mg/dL (8.5-10.3); CREATININE 1.1 mg/dL (0.6-1.2); TOTAL PROTEIN 6.6 g/dL (6.7-8.2)
[2018-12-19 17:31] LABS: PLATELET ESTIMATE, MANUAL NORMAL (130-450,000) (NORMAL); PLATELET MORPHOLOGY NORMAL APPEARANCE (NORMAL)
--- NOTE | 2018-12-19 18:22 | XRAY Report ---
Reason: palpatations Procedure Date: 12/19/2018 Accession Number: [id number] / [id number] Procedure: XR - Chest 2 View X-Ray CPT Code: 36716 FULL RESULT: EXAM: CHEST RADIOGRAPHY EXAM DATE: 12/19/2018 06:06 PM. CLINICAL HISTORY: Palpitations. COMPARISON: CHEST 1 VIEW 04/24/2018 3:57 PM. TECHNIQUE: 2 views. FINDINGS: Lungs/Pleura: No focal opacities evident. No pleural effusion. No pneumothorax. Lungs are well expanded. Mediastinum: Heart and mediastinal contours are unremarkable. Other: None. IMPRESSION: No acute intrathoracic plain film abnormality. RADIA
--- NOTE | 2018-12-19 18:49 | ED Physician Documentation ---
PD HPI CHEST PAIN - Stated complaint Stated Complaint: Irregular HR - Chief complaint Chief Complaint: Cardiac - History obtained from History obtained from: Patient - History of Present Illness Timing - onset: Today Timing - onset during: Rest (this morning noted a feeling of fatigue and then took his pulse and noted it irregular though rate about 70-80. He says heart rate usually slow at 40s-50s. Has had episode of atrial fib last summer and is not aware of other episodes since. On Metoprolol. He did feel lightheaded this morning too and his BP was low at 70 systolic by home cuff. Did not feel pre- syncopal. No chest pain. Says BP typically about 110 systolic. BP is good on arrival here and is not feeling lightheaded.) Timing - duration: Hours (he waited to see if heart rhythm would become more regular but it has stayed irregular for about 8 hours so to ER after calling Cardiology office and being directed to ER.) Timing - details: Abrupt onset, Still present Quality: Other (pressure and just feeling fatigue mostly) Associated symptoms: Feeling faint / dizzy, General Weakness, Palpitations Similar symptoms before: Diagnosis (atrial fib episode last summer) Review of Systems Constitutional: denies: Fever Nose: denies: Rhinorrhea / runny nose, Congestion Throat: denies: Sore throat Respiratory: denies: Cough GI: denies: Abdominal Pain, Nausea, Vomiting, Diarrhea, Bloody / black stool Neurologic: reports: Generalized weakness. denies: Focal weakness, Numbness, Near syncope, Altered mental status PD PAST MEDICAL HISTORY - Past Medical History Past Medical History: Yes Cardiovascular: Atrial fibrillation Neuro: TIA : Benign prostate hypertrophy - Past Surgical History Past Surgical History: No HEENT: Other - Present Medications Home Medications: Ambulatory Orders Medication Instructions Recorded Confirmed Tamsulosin [Flomax] 0.4 mg PO DAILY #30 capsule 03/10/18 12/19/18 Apixaban [Eliquis] 5 mg PO 12/19/18 Metoprolol Succinate 50 mg PO 12/19/18 - Allergies Allergies/Adverse Reactions: Allergies Allergy/AdvReac Type Severity Reaction Status Date / Time Anesthetics - Amide Type Allergy Anaphylaxis Verified 04/24/18 15:40 Anesthetics - Mercedes Type- Allergy Anaphylaxis Verified 04/24/18 15:40 Parabens Penicillins Allergy Unknown Verified 03/10/18 12:12 - Social History Does the pt smoke?: No Smoking Status: Never smoker Does the pt drink ETOH?: Yes Does the pt have substance abuse?: No - POLST Patient has POLST: No POLST Status: Full Code PD ED PE NORMAL - Vitals Vital signs reviewed: Yes - General General: Alert and oriented X 3, No acute distress, Well developed/nourished - HEENT HEENT: Moist mucous membranes, Pharynx benign - Neck Neck: Supple, no meningeal sign, No adenopathy - Cardiac Cardiac: No murmur. No: RRR (controlled rate but irregular rhythm.) - Respiratory Respiratory: Clear bilaterally - Abdomen Abdomen: Soft, Non tender - Back Back: No CVA TTP - Derm Derm: Normal color, Warm and dry - Extremities Extremities: No deformity, No tenderness to palpate, Normal ROM s pain, No edema, No calf tenderness / cord - Neuro Neuro: Alert and oriented X 3, No motor deficit, Normal speech Results - Vitals Vitals: Vital Signs - 24 hr 12/19/18 12/19/18 12/19/18 16:43 17:25 18:15 Temperature 36.9 C Heart Rate 86 75 76 Respiratory 18 14 16 Rate Blood Pressure 109/67 111/76 114/81 H O2 Saturation 100 97 12/19/18 12/19/18 12/19/18 18:17 19:00 20:29 Temperature 36.7 C Heart Rate 68 73 50 L Respiratory 16 16 16 Rate Blood Pressure 104/78 128/99 H 115/76 O2 Saturation 96 99 98 Oxygen O2 Source Room air - EKG (time done) 16:52 Rate: Rate (enter#) (71) Rhythm: Atrial fibrillation [place]: Normal Intervals: Normal [place] QRS: Normal Ischemia: Normal ST segments. No: ST elevation c/w ischemia, ST depression 20:01 Rate: Rate (enter#) (46) Rhythm: Sinus bradycardia [place]: Normal Intervals: Normal [place] QRS: Normal Ischemia: Normal ST segments. No: ST elevation c/w ischemia, ST depression Compare to prior EKG: Changed from prior EKG (converted to NSR) - Labs Labs: Laboratory Tests 12/19/18 12/19/18 12/19/18 17:03 17:03 17:03 WBC 6.2 RBC 6.10 Hgb 13.1 L Hct 41.5 L MCV 68.1 L MCH 21.5 L MCHC 31.5 L RDW 16.8 H Plt Count 184 MPV 9.9 Neut # (Auto) 4.3 Lymph # (Auto) 1.0 L [place] # (Auto) 0.6 Eos # (Auto) 0.2 Baso # (Auto) 0.1 Absolute Nucleated RBC 0.01 Nucleated RBC % 0.2 Manual Slide Review Indicated Platelet Estimate NORMAL (130-450,000) Platelet Morphology NORMAL APPEARANCE RBC Morph Micro Appear 1+ AKANKSHA CELLS Sodium 141 Potassium 3.9 Chloride 107 Carbon Dioxide 26 Anion Gap 8.0 BUN 22 H Creatinine 1.1 Estimated GFR (MDRD) 66 L Glucose 142 H Calcium 8.9 Total Bilirubin 1.6 H AST 30 ALT 23 Alkaline Phosphatase 90 Troponin I < 0.04 Total Protein 6.6 L Albumin 3.9 Globulin 2.7 Albumin/Globulin Ratio 1.4 Lipase 31 PD MEDICAL DECISION MAKING - ED course Complexity details: considered differential (just starting the Procainamide infusion (really not any got in) and he converted to NSR with sohail rate, which he says is usual for him.He felt okay. BP good. He is now good to go home. Repeat ECG done to show baseline pattern. ), d/w patient Departure - Departure Disposition: 01 Home, Self Care Clinical Impression: Paroxysmal atrial fibrillation Condition: Stable Record reviewed to determine appropriate education?: Yes Instructions: ED Afib Follow-Up: Jass Prado MD [Primary Care Provider] - Comments: Continue your usual medications. Do not take your nighttime dose of metoprolol tonight since you are to take it today. Stay well-hydrated. Follow-up with your Cold Strip Feeder if you have recurrent episodes and return to the ER if needed. Contact your Cardiology office tomorrow to tell them of the episode. Discharge Date/Time: 12/19/18 20:53
[2018-12-19] MEDS ORDERED: SODIUM CHLORIDE 0.9% 1,000 ML IV ONE (19:15)
[2018-12-19] MEDS ORDERED: PROCAINAMIDE 100 MG/1 ML 10 ML MDV IV STA (19:15)
[2018-12-19] MEDS ORDERED: PROCAINAMIDE 1,000 MG in SODIUM CHLORIDE 0.9% 240 ML IV STA (19:35)
[2018-12-19 20:30] VITALS: BP 115/76
== END 2018-12-19 20:53 | disposition home or self-care (01) ==
LOC: ED 16:24
DX: I48.0 Paroxysmal atrial fibrillation (principal); R00.1 Bradycardia, unspecified; Z79.01 Long term (current) use of anticoagulants; Z86.73 Personal history of transient ischemic attack (TIA), and cerebral infarction without residual deficits
CPT/HCPCS: 36415; 71046; 80053; 83690; 84484; 85025; 93005; 99283; 99284; J2690

== ENCOUNTER 2019-04-12 21:18 | Inpatient (IN) | payer MEDICARE, BC ==
[2019-04-12 22:01] LABS: EOSINOPHILS # (AUTO) 0.2 10^3/uL (0.0-0.7); EOSINOPHILS % (AUTO) 4.3 %
[2019-04-12 22:04] LABS: BASOPHILS % (AUTO) 0.8 %; LYMPHOCYTES # (AUTO) 0.8 10^3/uL (1.5-3.5); LYMPHOCYTES % (AUTO) 16.1 %; MEAN CORPUSCULAR HEMOGLOBIN 21.2 pg (27.0-31.0); MEAN CORPUSCULAR HGB CONC 30.9 g/dL (32.0-36.0); MEAN CORPUSCULAR VOLUME 68.7 fL (80.0-94.0); MONOCYTES # (AUTO) 0.5 10^3/uL (0.0-1.0); MONOCYTES % (AUTO) 10.6 %; NEUTROPHILS # (AUTO) 3.5 10^3/uL (1.5-6.6); PLT - PLATELET COUNT 214 10^3/uL (130-450); RED BLOOD COUNT 5.18 10^6/uL (4.70-6.10); RED CELL DISTRIBUTION WIDTH 18.3 % (12.0-15.0); WHITE BLOOD COUNT 5.1 x10^3/uL (4.8-10.8)
[2019-04-12 22:12] LABS: ALBUMIN 3.4 g/dL (3.2-5.5); ALBUMIN/GLOBULIN RATIO 1.2 (1.0-2.2); BILIRUBIN,TOTAL 1.3 mg/dL (0.2-1.0); CALCIUM 8.9 mg/dL (8.5-10.3); CREATININE 4.2 mg/dL (0.6-1.2); TOTAL PROTEIN 6.3 g/dL (6.7-8.2)
--- NOTE | 2019-04-12 22:20 | XRAY Report ---
Reason: Chest Pain Procedure Date: 04/12/2019 Accession Number: [id number] / [id number] Procedure: XR - Chest 1 View X-Ray CPT Code: 05226 FULL RESULT: EXAM: CHEST RADIOGRAPHY EXAM DATE: 04/12/2019 09:47 PM. CLINICAL HISTORY: Chest Pain. COMPARISON: CHEST 2 VIEW 12/19/2018 5:56 PM. TECHNIQUE: 1 view. FINDINGS: Lungs/Pleura: No dense consolidation. No large effusion or pneumothorax. No pulmonary edema. Mediastinum: Heart and mediastinal contours are unremarkable. Other: None. IMPRESSION: No acute radiographic pulmonary abnormalities. RADIA
[2019-04-12] MEDS ORDERED: SODIUM CHLORIDE 0.9% 1,000 ML IV ONE (22:41)
[2019-04-12] MEDS ORDERED: diltiaZEM INJ 5 MG/ML VIAL IVP STA (22:54)
--- NOTE | 2019-04-12 22:54 | ED Physician Documentation ---
History of Present Illness - Stated complaint Stated Complaint: SKIPPING HEART - Chief complaint Chief Complaint: Cardiac - History obtained from History obtained from: Patient, Family - History of Present Illness Timing: How many days ago (2) - Additonal information Additional information: 73-year-old male with a history of intermittent atrial fibrillation on Eliquis has developed atrial fibrillation 2 days ago and he has been tolerating it until this evening when he was at rest he felt an episode for about 10 minutes of a chill inside of his body. He states he really did not feel well and this past. He states that while he was feeling this he felt his pulse it was very rapid and very irregular more than he is ever felt previously. He has had intermittent atrial fibrillation last episode was in November of this year which converted after beginning a an infusion of procainamide. The patient has had a fall 2 weeks ago he was pulling a blackberry cummins and the blackberry cummins letter ago he stumbled backwards 10 to 15 feet and then fell onto his back.He has been into see his chiropractor and his pain is somewhat better in his back. He acknowledges urinating a lot. Review of Systems Constitutional: reports: Fatigue. denies: Fever Eyes: denies: Decreased vision Ears: denies: Ear pain Nose: denies: Rhinorrhea / runny nose, Congestion Throat: denies: Sore throat Cardiac: denies: Chest pain / pressure, Palpitations Respiratory: denies: Dyspnea, Cough GI: denies: Abdominal Pain, Nausea, Vomiting : reports: Dysuria (back hurts with urination), Frequency Skin: denies: Rash Musculoskeletal: reports: Back pain. denies: Neck pain, Extremity pain Neurologic: denies: Generalized weakness, Focal weakness, Numbness PD PAST MEDICAL HISTORY - Past Medical History Cardiovascular: Atrial fibrillation Neuro: TIA : Benign prostate hypertrophy - Past Surgical History Past Surgical History: No HEENT: Other - Present Medications Home Medications: Ambulatory Orders Medication Instructions Recorded Confirmed Tamsulosin [Flomax] 0.4 mg PO DAILY #30 capsule 03/10/18 12/19/18 Apixaban [Eliquis] 5 mg PO 12/19/18 Metoprolol Succinate 50 mg PO 12/19/18 - Allergies Allergies/Adverse Reactions: Allergies Allergy/AdvReac Type Severity Reaction Status Date / Time Anesthetics - Amide Type Allergy Anaphylaxis Verified 07/30/18 15:40 Anesthetics - Mercedes Type- Allergy Anaphylaxis Verified 04/24/18 15:40 Parabens Penicillins Allergy Unknown Verified 03/10/18 12:12 - Social History Does the pt smoke?: No Smoking Status: Never smoker Does the pt drink ETOH?: Yes Does the pt have substance abuse?: No - POLST Patient has POLST: No POLST Status: Full Code PD ED PE NORMAL - Vitals Vital signs reviewed: Yes (tachy and hypertensive ) - General General: Alert and oriented X 3, No acute distress, Well developed/nourished - HEENT HEENT: Atraumatic, PERRL, EOMI - Neck Neck: Supple, no meningeal sign, No bony TTP - Cardiac Cardiac: No murmur, Other (irregularly irregular and rapid at 100 at the time of my exam ) - Respiratory Respiratory: No respiratory distress, Clear bilaterally - Abdomen Abdomen: Normal bowel sounds, Soft, Non tender, Other (The bladder is distended and palpable to the umbilicus) - Back Back: No CVA TTP, No spinal TTP - Derm Derm: Normal color, Warm and dry, No rash - Extremities Extremities: No deformity, No tenderness to palpate, Normal ROM s pain, No edema, No calf tenderness / cord - Neuro Neuro: Alert and oriented X 3, 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, No motor deficit, No sensory deficit, Normal speech Eye Opening: Spontaneous Motor: Obeys Commands Verbal: Oriented GCS Score: 15 - Psych Psych: Normal mood, Normal affect Results - Vitals Vitals: Vital Signs - 24 hr 04/12/19 04/12/19 04/12/19 21:20 21:49 22:00 Temperature 36.9 C Heart Rate 143 H 86 85 Respiratory 18 19 19 Rate Blood Pressure 152/87 H 149/96 H 172/117 H O2 Saturation 97 97 98 04/12/19 04/12/19 04/12/19 22:30 23:00 23:05 Temperature Heart Rate 84 91 90 Respiratory 18 19 13 Rate Blood Pressure 149/93 H 136/92 H 144/103 H O2 Saturation 96 97 97 04/12/19 04/12/19 04/12/19 23:10 23:15 23:30 Temperature Heart Rate 75 69 66 Respiratory 14 15 12 Rate Blood Pressure 178/102 H 155/74 H 150/80 H O2 Saturation 98 100 100 04/12/19 04/13/1919 23:45 00:00 00:30 Temperature Heart Rate 67 63 67 Respiratory 17 10 L 15 Rate Blood Pressure 125/74 134/73 H 144/70 H O2 Saturation 99 98 99 04/13/19 04/13/19 04/13/19 01:00 01:30 02:00 Temperature Heart Rate 71 69 73 Respiratory 12 12 17 Rate Blood Pressure 143/84 H 130/86 H 152/78 H O2 Saturation 100 98 98 Oxygen O2 Source Room air - EKG (time done) 2131 Rate: Rate (enter#) (90) Rhythm: Atrial fibrillation Ischemia: Q waves Compare to prior EKG: Changed from prior EKG (SPT 12-19-2018 q waves have devel ooped) Computer interpretation: Agree with computer - Labs Labs: Laboratory Tests 04/12/19 04/12/19 04/12/19 21:54 21:54 21:54 WBC 5.1 RBC 5.18 Hgb 11.0 L Hct 35.6 L MCV 68.7 L MCH 21.2 L MCHC 30.9 L RDW 18.3 H Plt Count 214 MPV 11.0 Neut # (Auto) 3.5 Lymph # (Auto) 0.8 L Dundy # (Auto) 0.5 Eos # (Auto) 0.2 Baso # (Auto) 0.0 Absolute Nucleated RBC 0.00 Nucleated RBC % 0.0 Manual Slide Review Indicated Platelet Estimate NORMAL (130-450,000) Platelet Morphology NORMAL APPEARANCE RBC Morph Micro Appear 1+ SCHISTOCYTES Sodium 147 H Potassium 4.1 Chloride 112 H Carbon Dioxide 23 Anion Gap 12.0 BUN 47 H Creatinine 4.2 H Estimated GFR (MDRD) 14 L Glucose 109 H Calcium 8.9 Total Bilirubin 1.3 H AST 17 ALT 15 Alkaline Phosphatase 116 Troponin I < 0.04 Total Protein 6.3 L Albumin 3.4 Globulin 2.9 Albumin/Globulin Ratio 1.2 Lipase 29 Urine Color Urine Clarity Urine pH Ur Specific [place] Urine Protein Urine Glucose (UA) Urine Ketones Urine Occult Blood Urine Nitrite Urine Bilirubin Urine Urobilinogen Ur Leukocyte Esterase Ur Microscopic Review Urine Culture Comments 04/12/19 23:15 WBC RBC Hgb Hct MCV MCH MCHC RDW Plt Count MPV Neut # (Auto) Lymph # (Auto) Dundy # (Auto) Eos # (Auto) Baso # (Auto) Absolute Nucleated RBC Nucleated RBC % Manual Slide Review Platelet Estimate Platelet Morphology RBC Morph Micro Appear Sodium Potassium Chloride Carbon Dioxide Anion Gap BUN Creatinine Estimated GFR (MDRD) Glucose Calcium Total Bilirubin AST ALT Alkaline Phosphatase Troponin I Total Protein Albumin Globulin Albumin/Globulin Ratio Lipase Urine Color YELLOW Urine Clarity CLEAR Urine pH 6.0 Ur Specific [place] <=1.005 Urine Protein NEGATIVE Urine Glucose (UA) NEGATIVE Urine Ketones NEGATIVE Urine Occult Blood NEGATIVE Urine Nitrite NEGATIVE Urine Bilirubin NEGATIVE Urine Urobilinogen 0.2 (NORMAL) Ur Leukocyte Esterase NEGATIVE Ur Microscopic Review NOT INDICATED Urine Culture Comments NOT INDICATED - Rads (name of study) CTab/pel Radiology: Prelim report reviewed ( moderate on the left mild to moderate on the right are seen. This is likely secondary to increased hydrostatic pressure from the severely distended urinary bladder. The bladder has a thickened trabecular appearance suggesting chronic outflow obstruction. Bilateral lateral bladder diverticular are also seen. No obstructing stone is noted on this examination. Enlargement of the prostate may be from hypertrophy versus neoplasm. Correlation with PSA values could be considered, if clinically necessary. Blastic metastases are noted within the visualized osseous structures again correlation with PSA values would be helpful. Artifact versus subtle incidentally seen pulmonary embolism within the left lower lobe pulmonary artery similar subtle tiny abnormalities can also be seen in the right lower lobe vessels. Further assessment could be considered with a CT pulmonary angiogram), EMP read indepedently, See rad report Procedures - IVC sono (time) 2149 Bedside IVC sono: IVC measures (cm) (1.54), IVC collapsed c insp (cm) (complete), Dehydration (est deficit 1 liter) PD MEDICAL DECISION MAKING - ED course Complexity details: reviewed old records, reviewed results, re-evaluated patient, considered differential, d/w patient, d/w family ED course: 73 y/o male with afib Has developed an episode this evening where he does not feel well and he is come to the emergency department for evaluation. On initial evaluation he appears well he is mildly dehydrated on interrogation the inferior vena cava and his heart rate is 100 or less in atrial fibrillation. His laboratory studies show an elevation of the BUN and creatinine and he has had this prior fall and a CT scan of the abdomen pelvis is obtained for evaluation. On this film it is obvious his bladder is markedly distended and he has hydronephrosis. This likely explains his renal failure and this is reversible. A Daiz catheter is placed and 3500 mL's of urine is drained. He does appear to have bony metastases into the spine likely related to prostate cancer. He will need follow-up with urology and with his primary care doctor. Here in the emergency department he is administered saline and his bladder is drained. We will keep the Diaz catheter in place. I have asked the patient to follow-up with Dr. Mcdaniel in the morning for referral to urology. The expectation is the patient will have resolution of his renal failure and will likely need a procedure rather than just removal of the catheter. The patient does have renal failure and he does develop postobstructive diuresis. I have asked to admit the patient to the hospital for continued administration of saline to keep up with the diuresis. I have contacted Dr. Edwards the urologist on-call at [facility] in [place] and he recommends a ministration of fluids and management of fluid and electrolyte [facility] the medical service and he is interaction to the case would be management after discharge. The patient will need to have Diaz catheter in place at discharge. Departure - Departure Disposition: [facility] DC/Xfer Clinical Impression: Urinary retention, Bony metastasis Acute renal failure Qualifiers: Acute renal failure type: with other specified pathological lesion Qualified Code(s): N17.8 - Other acute kidney failure Condition: Stable
[2019-04-12 22:55] LABS: PLATELET ESTIMATE, MANUAL NORMAL (130-450,000) (NORMAL); PLATELET MORPHOLOGY NORMAL APPEARANCE (NORMAL)
--- NOTE | 2019-04-12 23:33 | CT Report ---
Reason: left flank pain Procedure Date: 04/12/2019 Accession Number: [id number] / [id number] Procedure: CT - Abdomen/Pelvis WO CPT Code: FULL RESULT: EXAM: CT ABDOMEN AND PELVIS (CT KUB) EXAM DATE: 04/12/2019 10:53 PM. CLINICAL HISTORY: Left-sided flank pain. COMPARISONS: None. TECHNIQUE: Routine axial helical CT imaging was performed through the abdomen and pelvis without IV contrast. Reconstructions: Coronal and sagittal. In accordance with CT protocol optimization, one or more of the following dose reduction techniques were utilized for this exam: automated exposure control, adjustment of mA and/or KV based on patient size, or use of iterative reconstructive technique. FINDINGS: Kidneys and Ureters: There is bilateral hydroureteronephrosis, moderate on the right and [id number] on the left. The ureters are dilated to the level of the UVJ. No obstructing stone is noted. There are no intrarenal stones evident on this examination. Bilateral perinephric fat stranding is present. Abdominal Solid Organs: There is a small heterogenous low-density abnormality within the posterolateral portion of the right hepatic lobe (image 29 series 3). This is difficult to fully characterize on this examination. Otherwise, abdominal parenchymal organs are without significant abnormality within the confines of a noncontrast exam. Bowel: No evidence of bowel obstruction. Appendix: Normal. Lymph Nodes: Increased number of scattered small as well as mild enlarged periaortic retroperitoneal lymph nodes are present. These are nonspecific. Fluid: No significant ascites. Vasculature: Normal caliber aorta. There is moderate aortic and branch vessel atherosclerosis. Pelvis: There is severe distention of the urinary bladder. There is a large diverticulum arising from the left lateral portion of the urinary bladder. Small right lateral bladder diverticulum is also present. Trabeculated thickened wall of the urinary bladder is also present. Moderate to severe prostate hypertrophy is noted. Bones: Mottled appearance of the osseous structures, with multifocal indistinct sclerotic foci about the pelvic bones, notably the left-sided pubic bone. These are worrisome for blastic metastases. Similar lesions are also seen within the lumbar vertebral bodies. Lower Chest: Possible tiny fat-containing posteriorly located right hemidiaphragmatic hernia versus eventration. There is a subtle low-density abnormality within the left lower lobe descending pulmonary arterial branch (image 2 series 3). While this could represent artifact, a subtle pulmonary embolism in this location is difficult to exclude with certainty. There is no significant lung base consolidation noted. There is no significant effusion. IMPRESSION: 1. Bilateral hydroureteronephrosis, moderate on the left and mild to moderate on the right are seen. This is likely secondary to increased hydrostatic pressure from the severely distended urinary bladder. The bladder has a thickened trabeculated appearance, suggesting chronic outflow obstruction. Bilateral-lateral bladder diverticula are also seen. No obstructing stone is noted on this examination. 2. Enlargement of the prostate may be from hypertrophy versus neoplasm. Correlation with PSA values could be considered, if clinically necessary. 3. Blastic metastases are noted within the visualized osseous structures. Again, correlation with PSA values would be helpful. 4. Artifact versus a subtle incidentally seen pulmonary embolism within the left lower lobe pulmonary artery. Similar subtle tiny abnormalities can also be seen within the right lower lobe vessels. Further assessment could be considered with a CT pulmonary angiogram. RADIA
[2019-04-12 23:35] LABS: BILIRUBIN,URINE NEGATIVE (NEGATIVE); GLUCOSE, URINE (UA) NEGATIVE (NEGATIVE); KETONES,URINE (UA) NEGATIVE (NEGATIVE); LEUKOCYTE ESTERASE, URINE NEGATIVE (NEGATIVE); NITRITE,URINE NEGATIVE (NEGATIVE); OCCULT BLOOD,URINE NEGATIVE (NEGATIVE); PROTEIN,URINE NEGATIVE (NEGATIVE); UROBILINOGEN,URINE 0.2 (NORMAL) E.U./dL (NORMAL)
[2019-04-12 23:39] LABS: CLARITY,URINE CLEAR (CLEAR)
[2019-04-13] MEDS ORDERED: SODIUM CHLORIDE 0.9% 1,000 ML IV ONE (01:59)
[2019-04-13] MEDS ORDERED: SODIUM CHLORIDE FLUSH 0.9% 10 ML SYRINGE IVP PRN (04:02)
--- NOTE | 2019-04-13 04:17 | HISTORY & PHYSICAL EXAMINATION ---
Chief Complaint - Chief Complaint Chief Complaint: not feeling well History of Present Illness - Admitted From Admitted From:: [facility] ED - History Obtained From Records Reviewed: yes History obtained from: patient - History of Present Illness HPI Comment/Other: Patient seen on 04/13/19 at 0400am Patient is a 73 y/o male with Hx of atrial fibrillation on metoprolol and eliquis who presented to the ED with complain of not feeling well, shivering and chills at home. He was in atrial fibrillation upon presentation with a heart rate ranging between 70 and 100. However upon further work up, he was found to have a creatinine of 4.2. In November 2018, his Creatinine was 1.1. Further work up showed a significantly dilated bladder on a bladder scan. A CT of the abdomen/pelvis without contrast showed bilateral hydronephrosis and some perinephric stranding. There was indication of malignancy/ metastasis. Patient had a norris cath inserted with approximately 8L of urine out. He denied chest pain, ROJELIO or abdominal pain. However he reports firmness in his abdomen distal to his umbilicus for months. He has difficulty urinating owing to BPH, however it has been progressively worse over the past couple of months. He denied nausea, vomiting, fever or chills. He has a 2+ pitting edema in his lower extremities bilaterally. The rest of his history is unremarkable. History - Past Medical History Cardiovascular: reports: Atrial fibrillation Neuro: reports: TIA : reports: Benign prostate hypertrophy MRSA Hx?: No - Past Surgical History HEENT: reports: Other - Family & Social History Family History: Mother: , Father: , CVA/TIA Family History Comment/Other: Significant cardiac history on the maternal side of his family. Patient is living with his at [place]. pt had two children. Living arrangement: At home Living Situation: With spouse/s.o. Social History Notes: pt denies cigarette smoker, alcohol and drug abuse - Substance History Use: Uses substance without health or social issues: NONE - POLST Patient has POLST: No POLST Status: Full Code Meds/Allgy - Home Medications Home Medications: Ambulatory Orders Medication Instructions Recorded Confirmed Tamsulosin [Flomax] 0.4 mg PO DAILY #30 capsule 03/10/18 12/19/18 Apixaban [Eliquis] 5 mg PO 12/19/18 Metoprolol Succinate 50 mg PO 12/19/18 - Allergies Allergies/Adverse Reactions: Allergies Allergy/AdvReac Type Severity Reaction Status Date / Time Anesthetics - Amide Type Allergy Anaphylaxis Verified 04/13/19 04:10 Anesthetics - Mercedes Type- Allergy Anaphylaxis Verified 04/13/19 04:10 Parabens Penicillins Allergy Unknown Verified 04/13/19 04:10 Review of Systems - Constitutional Constitutional: reports: Chills, Malaise. denies: Fatigue, Fever, Weakness - Eyes Eyes: denies: Vision loss, Dipolpia - Ears, Nose & Throat Ears, Nose & Throat: denies: Tinnitus, Vertigo, Sore throat, Hoarseness - Cardiovascular Cariovascular: reports: Irregular heart rate, Edema. denies: Chest pain, Lightheadedness, Syncope - Respiratory Respiratory: denies: Cough, Wheezing, Orthopnea - Gastrointestinal Gastrointestinal: denies: Abdominal pain, Abdominal distention, Constipation, Black stools, Nausea, Vomiting - Genitourinary Genitourinary: reports: Dysuria - Musculoskeletal Musculoskeletal: denies: Muscle pain, Back pain, Joint pain - Integumentary Integumentary: reports: Other (tattoos all over body). denies: Rash, Pruritis, Dryness - Neurological Neurological: denies: General weakness, Focal weakness, Headache, Dizziness - Endocrine Endocrine: denies: Polyuria, Polydypsia - Hematologic/Lymphatic Hematologic/Lymphatic: denies: Anemia, Bruising Prior Level of Functionality: He is independent of activities of daily living Exam - Vital Signs Vital Signs: Vital Signs x48h Temp Pulse Resp BP Pulse Ox 04/13/19 04:00 88 10 L 147/92 H 97 04/13/19 03:30 86 14 134/74 H 96 04/13/19 03:00 93 13 133/81 H 96 04/13/19 02:30 75 13 149/71 H 100 04/13/19 02:00 73 17 152/78 H 98 04/13/19 01:30 69 12 130/86 H 98 04/13/19 01:00 71 12 143/84 H 100 04/13/19 00:30 67 15 144/70 H 99 04/13/19 00:00 63 10 L 134/73 H 98 04/12/19 23:45 67 17 125/74 99 04/12/19 23:30 66 12 150/80 H 100 04/12/19 23:15 69 15 155/74 H 100 04/12/19 23:10 75 14 178/102 H 98 04/12/19 23:05 90 13 144/103 H 97 04/12/19 23:00 91 19 136/92 H 97 04/12/19 22:30 84 18 149/93 H 96 04/12/19 22:00 85 19 172/117 H 98 04/12/19 21:49 86 19 149/96 H 97 04/12/19 21:20 36.9 C 143 H 18 152/87 H 97 - Physical Exam General Appearance: positive: No acute distress, Alert Eyes Bilateral: positive: Normal inspection, PERRL, EOMI ENT: positive: ENT inspection nml, No signs of dehydration Neck: positive: Nml inspection, No JVD, Trachea midline Respiratory: positive: Chest non-tender, No respiratory distress, Breath sounds nml. negative: Wheezes, Rales, Rhonchi Cardiovascular: positive: No murmur, Irregularly irregular. negative: JVD present Abdomen: positive: Non-tender, No organomegaly, Nml bowel sounds, No distention. negative: Guarding, Rebound Back: positive: Nml inspection Skin: positive: Color nml, No rash, Warm, Other (tattoos all over body) Extremities: positive: Non-tender, Full ROM, Pedal edema (+2 pitting) Neurologic/Psychiatric: positive: Oriented x3, CN's nml (2-12), Motor nml, Sensation nml, Mood/affect nml Conclusion/Plan - Problem List (1) Acute renal failure Conclusion/Plan: 2/2 Post renal obstruction Norris catheter in place. 8L urine already out Will do daily labs monitoring creatinine While appropriately hydrating patient with D5+half NS at 125ml/hr Expect improvement in renal function Urology at [place] was contacted and they recommended outpatient follow up. Qualifiers: Acute renal failure type: with other specified pathological lesion Qualified Code(s): N17.8 - Other acute kidney failure (2) Bony metastasis Conclusion/Plan: Suspect 2/2 prostate cancer. PSA pending Patient will need to follow up with urology outpatient for further work up (3) Hematuria Conclusion/Plan: Likely 2/2 insertion of norris catheter and patient being on eliquis Will monitor for now (4) BPH (benign prostatic hyperplasia) Conclusion/Plan: Continue tamsulosin (5) A-fib Conclusion/Plan: Currently rate controlled Continue metoprolol succinate and eliquis. If needed, will add diltiazem Qualifiers: Atrial fibrillation type: chronic Qualified Code(s): I48.2 - Chronic atrial fibrillation - Lab Results Fish Bones: 04/12/19 21:54 04/12/19 21:54 Core Measures - Anticipated LOS I expect patient to be DC'd or transferred within 96 hours.: Yes - DVT/VTE - Prophylaxis VTE/DVT Device ordered at admit?: Yes VTE/DVT Prophylaxis med ordered at admit?: Yes
[2019-04-13] MEDS: DEXTROSE 5%-0.45% NACL 1,000 ML IV SCH ×3 (05:00→20:40)
[2019-04-13] MEDS ORDERED: SODIUM CHLORIDE 0.9% 1,000 ML IV SCH (05:00)
[2019-04-13 05:21] LABS: CALCIUM 9.3 mg/dL (8.5-10.3); CREATININE 2.3 mg/dL (0.6-1.2)
[2019-04-13 05:25] LABS: BASOPHILS % (AUTO) 0.6 %; EOSINOPHILS # (AUTO) 0.2 10^3/uL (0.0-0.7); EOSINOPHILS % (AUTO) 2.6 %; HGB - HEMOGLOBIN 12.2 g/dL (14.0-18.0); LYMPHOCYTES # (AUTO) 0.7 10^3/uL (1.5-3.5); LYMPHOCYTES % (AUTO) 9.8 %; MEAN CORPUSCULAR HEMOGLOBIN 21.8 pg (27.0-31.0); MEAN CORPUSCULAR HGB CONC 32.1 g/dL (32.0-36.0); MONOCYTES # (AUTO) 0.7 10^3/uL (0.0-1.0); MONOCYTES % (AUTO) 9.1 %; NEUTROPHILS # (AUTO) 5.6 10^3/uL (1.5-6.6); NEUTROPHILS % (AUTO) 77.6 %; PLT - PLATELET COUNT 215 10^3/uL (130-450); RED BLOOD COUNT 5.59 10^6/uL (4.70-6.10); RED CELL DISTRIBUTION WIDTH 18.1 % (12.0-15.0); WHITE BLOOD COUNT 7.3 x10^3/uL (4.8-10.8)
[2019-04-13 05:41] LABS: PLATELET ESTIMATE, MANUAL NORMAL (130-450,000) (NORMAL)
[2019-04-13 05:51] LABS: PSA FREE 13.941 ng/mL (0.16-2.81)
[2019-04-13] MEDS: POLYETHYLENE GLYCOL 3350 17 GM PACKET PO SCH (08:44)
[2019-04-13] MEDS: SODIUM CHLORIDE FLUSH 0.9% 10 ML SYRINGE IVP SCH ×2 (08:45→17:38)
[2019-04-13] MEDS: APIXABAN 5 MG TABLET PO SCH ×2 (10:19→20:40)
[2019-04-13] MEDS: METOPROLOL SUCCINATE 25 MG TABLET PO SCH (17:37)
[2019-04-14] MEDS: SODIUM CHLORIDE FLUSH 0.9% 10 ML SYRINGE IVP SCH ×2 (03:33→08:56)
[2019-04-14] MEDS: DEXTROSE 5%-0.45% NACL 1,000 ML IV SCH (04:18)
[2019-04-14 05:35] LABS: BASOPHILS % (AUTO) 0.5 %; EOSINOPHILS # (AUTO) 0.3 10^3/uL (0.0-0.7); EOSINOPHILS % (AUTO) 3.4 %; HGB - HEMOGLOBIN 11.1 g/dL (14.0-18.0); LYMPHOCYTES # (AUTO) 1.1 10^3/uL (1.5-3.5); LYMPHOCYTES % (AUTO) 13.4 %; MEAN CORPUSCULAR HEMOGLOBIN 21.6 pg (27.0-31.0); MEAN CORPUSCULAR HGB CONC 31.1 g/dL (32.0-36.0); MEAN CORPUSCULAR VOLUME 69.6 fL (80.0-94.0); MONOCYTES # (AUTO) 0.9 10^3/uL (0.0-1.0); MONOCYTES % (AUTO) 11.4 %; NEUTROPHILS # (AUTO) 5.6 10^3/uL (1.5-6.6); NEUTROPHILS % (AUTO) 70.8 %; PLT - PLATELET COUNT 189 10^3/uL (130-450); RED BLOOD COUNT 5.13 10^6/uL (4.70-6.10); RED CELL DISTRIBUTION WIDTH 17.2 % (12.0-15.0)
[2019-04-14 05:49] LABS: ALBUMIN/GLOBULIN RATIO 1.1 (1.0-2.2); BILIRUBIN,TOTAL 1.7 mg/dL (0.2-1.0); CALCIUM 8.5 mg/dL (8.5-10.3); CREATININE 1.1 mg/dL (0.6-1.2); TOTAL PROTEIN 5.7 g/dL (6.7-8.2)
[2019-04-14 06:04] LABS: PLATELET ESTIMATE, MANUAL NORMAL (130-450,000) (NORMAL); PLATELET MORPHOLOGY NORMAL APPEARANCE (NORMAL)
[2019-04-14 08:09] VITALS: BP 112/53
[2019-04-14] MEDS: APIXABAN 5 MG TABLET PO SCH (08:55)
[2019-04-14] MEDS: METOPROLOL SUCCINATE 25 MG TABLET PO SCH (08:55)
[2019-04-14] MEDS: POLYETHYLENE GLYCOL 3350 17 GM PACKET PO SCH (08:56)
--- NOTE | 2019-04-14 10:26 | Discharge Plan ---
Discharge Plan Problem Reviewed?: Yes Disposition: Home, Self Care Condition: Good Prescriptions: Metoprolol Succinate [Toprol Xl] 12.5 mg PO DAILY #15 tab.er.24h Diet: Regular Activity Restrictions: Activity as Tolerated Shower Restrictions: No Instruction Topics: Catheter Bag Urinary Empty Clean, Catheter Indwelling Urinary Dc, Leg Bag Care Dc Health Concerns: Urinary retention Acute kidney failure Suspected prostate cancer with albino mets Indwelling norris Plan of Treatment: Maintain indwelling norris See a Oncologist Prevent infection by cleaning around your catheter at least every 12 hours with soap and water/rinse with water Take a reduced dose of metoprolol based on recent heart rates while in our care Care Goals: Prevent hospital stays Get prompt Oncology referral Continue indwelling norris for urinary retention Assessment: You were admitted for acute kidney injury which was caused by a very enlarged bladder from an enlarged prostate After inserting a norris catheter, you kidney function returned to normal Your Eliquis was continued, despite a bit of pink urine noticed in the norris tubing, which should continue until otherwise directed Your metoprolol dose was reduced to be continued at home based on heart rates in the 50's On an echocardiogram you were 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 Johan will get a discharge summary from me, but please call on Tuesday morning to get this process going No Smoking: If you smoke, Please STOP! Call for help. Follow-up with: Jass Prado MD [Primary Care Provider] -
--- NOTE | 2019-04-14 11:15 | DISCHARGE SUMMARY ---
Discharge Summary Admit Date: 04/13/19 Discharge Date: 04/14/19 Discharging Provider: FRAN Knowles Primary Care Provider: Jass Prado Code Status: Attempt Resuscitation Condition at Discharge: Good Discharge Disposition: 01 Home, Self Care - DIAGNOSES Admission Diagnoses: Acute renal failure Bony metastasis Hematuria BPH (benign prostatic hyperplasia) A-fib Discharge Diagnoses with Status of Each Condition: Acute renal failure- resolved, creatinine at baseline 1.1, recommend continuation of indwelling norris Bony metastasis- found on imaging, patient was informed of the likelihood of prostate CA with albino mets, recommend prompt Oncology referral Abnormal prostate specific antigen (PSA)- 205, no previous values to compare Hematuria- resolved BPH (benign prostatic hyperplasia)- chronic, now with indwelling norris A-fib- chronic, continued on Eliquis, BB adjusted for bradycardia Chronic anticoagulation- chronic, no changes Aortic stenosis- found on echo completed, noted as mild Indwelling norris catheter present - new on this hospital stay, estimated to be retaining up to 5L at once due to likely prostate CA - HPI History of Present Illness: HPI per Dr. Salcido: Patient seen on 04/13/19 at 0400am Patient is a 73 y/o male with Hx of atrial fibrillation on metoprolol and eliquis who presented to the ED with complain of not feeling well, shivering and chills at home. He was in atrial fibrillation upon presentation with a heart rate ranging between 70 and 100. However upon further work up, he was found to have a creatinine of 4.2. In November 2018, his Creatinine was 1.1. Further work up showed a significantly dilated bladder on a bladder scan. A CT of the abdome n/pelvis without contrast showed bilateral hydronephrosis and some perinephric stranding. There was indication of malignancy/ metastasis. Patient had a norris cath inserted with approximately 8L of urine out. He denied chest pain, ROJELIO or abdominal pain. However he reports firmness in his abdomen distal to his umbilicus for months. He has difficulty urinating owing to BPH, however it has been progressively worse over the past couple of months. He denied nausea, vomiting, fever or chills. He has a 2+ pitting edema in his lower extremities bilaterally. The rest of his history is unremarkable. - HOSPITAL COURSE Hospital Course: The patient was found to have evidence of prostate cancer and albino mets to his pelvic and vertebrae on imaging, as well as, a suspicious finding on the prostate. PSA was 205. His CRISTINA showed an elevated creatinine of 4.2, which resolved with a creatinine of 1.1, since placing an indwelling norris. His Eliquis was not stopped, and his hematuria resolved. He and his supportive were spoken with at great length about this diagnosis, and a prompt Oncology referral should be made by PCP. - ALLERGIES Allergies/Adverse Reactions: Allergies Allergy/AdvReac Type Severity Reaction Status Date / Time Anesthetics - Amide Type Allergy Anaphylaxis Verified 04/13/19 04:10 Anesthetics - Mercedes Type- Allergy Anaphylaxis Verified 04/13/19 04:10 Parabens Penicillins Allergy Unknown Verified 04/13/19 04:10 - MEDICATIONS Home Medications: Ambulatory Orders Medication Instructions Recorded Confirmed Apixaban [Eliquis] 5 mg PO BID 12/19/18 04/13/19 Metoprolol Succinate [Toprol Xl] 12.5 mg PO DAILY #15 tab.er.24h 04/14/19 - PHYSICAL EXAM AT DISCHARGE General Appearance: positive: No acute distress, Alert Eyes Bilateral: positive: PERRL ENT: positive: ENT inspection nml, Pharynx nml Neck: positive: Thyroid nml, No JVD, Trachea midline Respiratory: positive: Chest non-tender, No respiratory distress, Breath sounds nml Cardiovascular: positive: Regular rate & rhythm, No gallop, Bradycardia, Systolic murmur Peripheral Pulses: positive: 2+ Abdomen: positive: Non-tender, No organomegaly, Nml bowel sounds, No distention Back: positive: Nml inspection Skin: positive: Color nml, No rash, Warm, Dry Extremities: positive: Non-tender, Full ROM, Nml appearance, No pedal edema Neurologic/Psychiatric: positive: Oriented x3, CN's nml (2-12), Motor nml, Sensation nml, Mood/affect nml Reflexes: Bicep (R): 3+, Bicep (L): 3+ - LABS Result Diagrams: 04/14/19 05:00 04/14/19 05:00 - DIAGNOSTIC IMAGING Diagnostic Imaging Results: Final report reviewed Diagnostic Imaging Results Comments: EXAM: CT ABDOMEN AND PELVIS (CT KUB) EXAM DATE: 04/12/2019 10:53 IMPRESSION: 1. Bilateral hydroureteronephrosis, moderate on the left and mild to moderate on the right are seen. This is likely secondary to increased hydrostatic pressure from the severely distended urinary bladder. The bladder has a thickened trabeculated appearance, suggesting chronic outflow obstruction. Bilateral-lateral bladder diverticula are also seen. No obstructing stone is noted on this examination. 2. Enlargement of the prostate may be from hypertrophy versus neoplasm. Correlation with PSA values could be considered, if clinically necessary. 3. Blastic metastases are noted within the visualized osseous structures. Again, correlation with PSA values would be helpful. 4. Artifact versus a subtle incidentally seen pulmonary embolism within the left lower lobe pulmonary artery. Similar subtle tiny abnormalities can also be seen within the right lower lobe vessels. Further assessment could be considered with a CT pulmonary angiogram. - FOLLOW UP Follow Up: Disposition: Home Prescriptions: Metoprolol Succinate [Toprol Xl] 12.5 mg PO DAILY #15 tab.er.24h Health Concerns: Urinary retention, Acute kidney failure, Suspected prostate cancer with albino mets, Indwelling norris Plan of Treatment: Maintain indwelling norris, See a Oncologist, Prevent infection by cleaning around your catheter at least every 12 hours with soap and water/rinse with water, Take a reduced dose of metoprolol based on recent heart rates while in our care Care Goals: Prevent hospital stays, Get prompt Oncology referral, Continue indwelling norris for urinary retention Assessment: You were admitted for acute kidney injury which was caused by a very enlarged bladder from an enlarged prostate - After inserting a norris catheter, you kidney function returned to normal - Your Eliquis was continued, despite a bit of pink urine noticed in the norris tubing, which should continue until otherwise directed - Your metoprolol dose was reduced to be continued at home based on heart rates in the 50's - On an echocardiogram you were found to have a condition called aortic stenosis (tightening), best treated with rate control medications, also, avoid dehydration - Plan to get an echocardiogram in about one year - Your Primary care provider will need to make a referral to an Oncology - Dr. Prado will get a discharge summary from me, but please call on Tuesday morning to get this process going - TIME SPENT Time Spent in Discharge (Minutes): 55
== END 2019-04-14 13:10 | disposition home or self-care (01) | DRG 683 ==
LOC: ED 21:18 → MS3 04-13 03:28
PROVIDERS: ADMIT Internal Medicine; ATTEND Nurse Practitioner
DX: N17.8 Other acute kidney failure (principal); C79.51 Secondary malignant neoplasm of bone; E86.0 Dehydration; C61 Malignant neoplasm of prostate; I35.0 Nonrheumatic aortic (valve) stenosis; I48.91 Unspecified atrial fibrillation; I48.2 Chronic atrial fibrillation; N40.1 Benign prostatic hyperplasia with lower urinary tract symptoms; R33.8 Other retention of urine; N13.30 Unspecified hydronephrosis; R31.9 Hematuria, unspecified; R97.20 Elevated prostate specific antigen [PSA]; R60.0 Localized edema; Z79.01 Long term (current) use of anticoagulants; Z86.73 Personal history of transient ischemic attack (TIA), and cerebral infarction without residual deficits
CPT/HCPCS: 36415; 51702; 71045; 74176; 80048; 80053; 81003; 83690; 84153; 84154; 84484; 85025; 93005; 93306; 96361; 96374; 99285; A9270; 81001; 87086

== ENCOUNTER 2019-05-14 10:41 | Outpatient (CLI) | payer MEDICARE, BC ==
[2019-05-14 17:44] LABS: ALBUMIN 3.6 g/dL (3.2-5.5); ALBUMIN/GLOBULIN RATIO 1.3 (1.0-2.2); BILIRUBIN,TOTAL 1.1 mg/dL (0.2-1.0); CREATININE 1.2 mg/dL (0.6-1.2); TOTAL PROTEIN 6.4 g/dL (6.7-8.2)
== END 2019-05-14 10:42 | disposition home or self-care (01) ==
LOC: LAB.S 10:41
PROVIDERS: ATTEND Internal Medicine Medical Oncology
DX: C61 Malignant neoplasm of prostate (principal)
CPT/HCPCS: 36415; 80053; 84153

== ENCOUNTER 2019-05-29 22:28 | Emergency (ER) | payer MEDICARE, BC ==
[2019-05-29 22:38] VITALS: BP 159/73
--- NOTE | 2019-05-29 22:51 | ED Physician Documentation ---
History of Present Illness - Stated complaint Stated Complaint: CATHETER CAME OUT - Chief complaint Chief Complaint: General - History obtained from History obtained from: Patient - History of Present Illness Timing: Today (He has an indwelling Diaz due to a large prostate and prostate cancer causing urinary retention and subsequent renal failure. His kidneys have improved completely but his catheter fell out this evening.) Review of Systems Constitutional: denies: Fever, Chills GI: denies: Abdominal Pain, Abdominal Swelling, Nausea, Vomiting PD PAST MEDICAL HISTORY - Past Medical History Past Medical History: Yes Cardiovascular: Atrial fibrillation Respiratory: None Neuro: TIA Endocrine/Autoimmune: None GI: None : Benign prostate hypertrophy HEENT: None Psych: None Musculoskeletal: None Derm: None Other Past Medical History: PROSTATE CANCER... - Past Surgical History Past Surgical History: No HEENT: Other - Present Medications Home Medications: Ambulatory Orders Medication Instructions Recorded Confirmed Apixaban [Eliquis] 5 mg PO BID 12/19/18 04/13/19 Metoprolol Succinate [Toprol Xl] 12.5 mg PO DAILY #15 tab.er.24h 04/14/19 - Allergies Allergies/Adverse Reactions: Allergies Allergy/AdvReac Type Severity Reaction Status Date / Time Anesthetics - Amide Type Allergy Anaphylaxis Verified 05/29/19 22:37 Anesthetics - Mercedes Type- Allergy Anaphylaxis Verified 05/29/19 22:37 Parabens Penicillins Allergy Unknown Verified 05/29/19 22:37 - Social History Does the pt smoke?: No Smoking Status: Never smoker Does the pt drink ETOH?: Yes Does the pt have substance abuse?: No - Immunizations Immunizations are current?: Yes - POLST Patient has POLST: No POLST Status: Full Code PD ED PE NORMAL - Vitals Vital signs reviewed: Yes - General General: Alert and oriented X 3, No acute distress - Abdomen Abdomen: Normal bowel sounds, Soft, Non tender - Neuro Neuro: Alert and oriented X 3, Normal speech Results - Vitals Vitals: Vital Signs - 24 hr 05/29/19 22:36 Temperature 37.0 C Heart Rate 61 Respiratory 17 Rate Blood Pressure 159/73 H O2 Saturation 97 Oxygen O2 Source Room air Procedures - General procedure General procedure: Diaz catheter was replaced with a 16 Turkish standard catheter using sterile precautions as standard without issue. Departure - Departure Disposition: 01 Home, Self Care Clinical Impression: Encounter for Diaz catheter replacement Condition: Good Record reviewed to determine appropriate education?: Yes Instructions: ED Catheter Care Diaz Comments: Follow-up with [facility] for ongoing urologic care as scheduled. Return for any new or worsening symptoms.
== END 2019-05-29 23:08 | disposition home or self-care (01) ==
LOC: ED 22:28
DX: T83.021A Displacement of indwelling urethral catheter, initial encounter (principal); Y84.6 Urinary catheterization as the cause of abnormal reaction of the patient, or of later complication, without mention of misadventure at the time of the procedure; C61 Malignant neoplasm of prostate; I48.91 Unspecified atrial fibrillation; Z79.01 Long term (current) use of anticoagulants
CPT/HCPCS: 99281; 99282

== ENCOUNTER 2019-07-13 09:35 | Outpatient (CLI) | payer MEDICARE, BC ==
[2019-07-13 17:46] LABS: ALBUMIN 3.8 g/dL (3.2-5.5); ALBUMIN/GLOBULIN RATIO 1.4 (1.0-2.2); BILIRUBIN,TOTAL 1.4 mg/dL (0.2-1.0); CALCIUM 9.1 mg/dL (8.5-10.3); CREATININE 1.1 mg/dL (0.6-1.2); TOTAL PROTEIN 6.6 g/dL (6.7-8.2)
== END 2019-07-13 09:36 | disposition home or self-care (01) ==
LOC: LAB.S 09:35
PROVIDERS: ATTEND Internal Medicine Medical Oncology
DX: C61 Malignant neoplasm of prostate (principal)
CPT/HCPCS: 36415; 80053; 84153

== ENCOUNTER 2019-08-20 09:55 | Outpatient (CLI) | payer MEDICARE, BC ==
[2019-08-20 18:23] LABS: ALBUMIN 3.9 g/dL (3.2-5.5); ALBUMIN/GLOBULIN RATIO 1.5 (1.0-2.2); BILIRUBIN,TOTAL 1.8 mg/dL (0.2-1.0); TOTAL PROTEIN 6.5 g/dL (6.7-8.2)
== END 2019-08-20 09:56 | disposition home or self-care (01) ==
LOC: LAB.S 09:55
PROVIDERS: ATTEND Internal Medicine Medical Oncology
DX: C61 Malignant neoplasm of prostate (principal)
CPT/HCPCS: 36415; 80053; 84153

== ENCOUNTER 2019-09-06 10:31 | Outpatient (CLI) | payer MEDICARE, BC ==
[2019-09-06 17:47] LABS: ALBUMIN 3.9 g/dL (3.2-5.5); ALBUMIN/GLOBULIN RATIO 1.5 (1.0-2.2); BILIRUBIN,TOTAL 1.7 mg/dL (0.2-1.0); CALCIUM 9.4 mg/dL (8.5-10.3); TOTAL PROTEIN 6.5 g/dL (6.7-8.2)
== END 2019-09-06 10:32 | disposition home or self-care (01) ==
LOC: LAB.S 10:31
PROVIDERS: ATTEND Internal Medicine Medical Oncology
DX: C61 Malignant neoplasm of prostate (principal)
CPT/HCPCS: 36415; 80053; 84153

== ENCOUNTER 2019-11-22 12:37 | Outpatient (CLI) | payer MEDICARE, BC ==
--- NOTE | 2019-11-27 11:12 | DEXA Report ---
Reason: BONE DISORDER Procedure Date: 11/22/2019 Accession Number: [id number] / [id number] Procedure: DEX - Dexa Spine and/or Hip CPT Code: Final Report FULL RESULT: EXAM: Dexa Spine and/or Hip DATE: 11/22/2019 1:30 PM CLINICAL HISTORY: BONE DISORDER TECHNIQUE: Dual energy x-ray absorptiometry (DXA) was performed on a Abaxia System. Regions measured are the AP Spine, femoral neck, and if needed forearm. COMPARISON: None. In accordance with the International Society for Clinical Densitometry (ISCD) guidelines, data from previous exams may be reanalyzed using current recommendations and techniques. This is done to allow a more accurate basis for comparison with the current study. FINDINGS: The data for the lumbar spine is as follows: BMD (g/cm/cm) T-SCORE Z-SCORE REGION L1 1.121 -0.3 0.4 L2 1.195 -0.4 0.3 L3 1.073 -1.4 -0.7 L4 1.097 -1.2 -0.5 TOTAL 1.122 -0.8 -0.1 NOTE: All evaluable vertebrae are used for classification The data for the hip is as follows: BMD (g/cm/cm) T-SCORE Z-SCORE REGION Neck 0.835 -1.8 -0.4 TOTAL 0.941 -1.1 -0.2 NOTE: The femoral neck or total proximal femur, whichever is lowest, is used for classification. IMPRESSION: THE WHO CLASSIFICATION BASED ON THE INTERNATIONAL REFERENCE STANDARD IS OSTEOPENIA. THE FRACTURE RISK IS INCREASED. RECOMMENDATION: Patients with diagnosis of osteoporosis or osteopenia should have regular bone mineral density assessment. For those eligible for Medicare, routine testing is allowed once every 2 years. Testing frequency can be increased for patients who have rapidly progressing disease or for those who are receiving medical therapy to restore bone mass. COMMENT: World Health Organization (WHO) definitions for osteoporosis and osteopenia: NORMAL BMD: T-score at -1.0 or higher, fracture risk is low OSTEOPENIA BMD: T-score between -1.0 and -2.5, fracture risk is increased. OSTEOPOROSIS BMD: T-score at -2.5 or lower, fracture risk is high. National Osteoporosis Foundation recommends: 1. Obtain adequate dietary calcium (at least 1200 mg per day) and vitamin D (400-800 international units per day). 2. Participate, as appropriate, in regular weightbearing and muscle-strengthening exercise. 3. Avoid tobacco use and reduce alcohol and caffeine intake. 4. For more detailed information see the website at www.NOF.org.
== END 2019-11-22 12:38 | disposition home or self-care (01) ==
LOC: DI 12:37
PROVIDERS: ATTEND Nurse Practitioner
DX: M85.88 Other specified disorders of bone density and structure, other site (principal); C61 Malignant neoplasm of prostate
CPT/HCPCS: 77080

== ENCOUNTER 2020-07-22 08:31 | Outpatient (CLI) | payer MEDICARE, BC ==
[2020-07-22 15:44] LABS: ALBUMIN 3.8 g/dL (3.2-5.5); ALBUMIN/GLOBULIN RATIO 1.4 (1.0-2.2); BILIRUBIN,TOTAL 1.6 mg/dL (0.2-1.0); CALCIUM 9.1 mg/dL (8.5-10.3); CREATININE 0.9 mg/dL (0.6-1.2); TOTAL PROTEIN 6.5 g/dL (6.7-8.2)
== END 2020-07-22 08:32 | disposition home or self-care (01) ==
LOC: LAB.S 08:31
PROVIDERS: ATTEND Internal Medicine Medical Oncology
DX: C61 Malignant neoplasm of prostate (principal)
CPT/HCPCS: 36415; 80053

== ENCOUNTER 2020-08-20 07:20 | Outpatient (CLI) | payer MEDICARE, BC ==
[2020-08-20 16:07] LABS: ALBUMIN 3.9 g/dL (3.2-5.5); ALBUMIN/GLOBULIN RATIO 1.4 (1.0-2.2); BILIRUBIN,TOTAL 2.3 mg/dL (0.2-1.0); CALCIUM 9.5 mg/dL (8.5-10.3); CREATININE 0.9 mg/dL (0.6-1.2); TOTAL PROTEIN 6.7 g/dL (6.7-8.2)
== END 2020-08-20 07:21 | disposition home or self-care (01) ==
LOC: LAB.S 07:20
PROVIDERS: ATTEND Internal Medicine Medical Oncology
DX: C61 Malignant neoplasm of prostate (principal)
CPT/HCPCS: 36415; 80053

== ENCOUNTER 2020-08-27 07:28 | Outpatient (CLI) | payer MEDICARE, BC ==
[2020-08-27 16:39] LABS: ALBUMIN 3.8 g/dL (3.2-5.5); ALBUMIN/GLOBULIN RATIO 1.3 (1.0-2.2); BILIRUBIN,TOTAL 1.7 mg/dL (0.2-1.0); CALCIUM 9.4 mg/dL (8.5-10.3); TOTAL PROTEIN 6.7 g/dL (6.7-8.2)
== END 2020-08-27 07:29 | disposition home or self-care (01) ==
LOC: LAB.S 07:28
PROVIDERS: ATTEND Internal Medicine Medical Oncology
DX: C61 Malignant neoplasm of prostate (principal)
CPT/HCPCS: 36415; 80053; 84153

== ENCOUNTER 2020-11-04 07:03 | Outpatient (CLI) | payer MEDICARE, BC ==
[2020-11-04 15:35] LABS: BUN - BLOOD UREA NITROGEN 28 mg/dL (6-20); CALCIUM 9.5 mg/dL (8.5-10.3); CARBON DIOXIDE - CO2 26 mmol/L (21-32); CHLORIDE 107 mmol/L (101-111); CHOL/HDL RATIO 3.7 (<5.0); CHOLESTEROL 156 mg/dL; GLUCOSE 93 mg/dL (70-100); HDL CHOLESTEROL 42 mg/dL; LDL CHOLESTEROL,CALCULATED 105 mg/dL; LDL/HDL RATIO 2.5 (<3.6); VLDL CHOLESTEROL 9 mg/dL
== END 2020-11-04 07:04 | disposition home or self-care (01) ==
LOC: LAB.S 07:03
PROVIDERS: ATTEND Internal Medicine Cardiovascular Disease
DX: I10 Essential (primary) hypertension (principal); I25.10 Atherosclerotic heart disease of native coronary artery without angina pectoris; E78.00 Pure hypercholesterolemia, unspecified
CPT/HCPCS: 36415; 80048; 80061; 83721

== ENCOUNTER 2020-11-10 09:36 | Outpatient (CLI) | payer MEDICARE, BC ==
[2020-11-10 14:57] LABS: BASOPHILS # (AUTO) 0.1 10^3/uL (0.0-0.1); BASOPHILS % (AUTO) 1.1 %; EOSINOPHILS # (AUTO) 0.3 10^3/uL (0.0-0.7); EOSINOPHILS % (AUTO) 6.1 %; HGB - HEMOGLOBIN 10.8 g/dL (14.0-18.0); LYMPHOCYTES # (AUTO) 0.8 10^3/uL (1.5-3.5); LYMPHOCYTES % (AUTO) 15.9 %; MEAN CORPUSCULAR HEMOGLOBIN 22.5 pg (27.0-31.0); MEAN CORPUSCULAR HGB CONC 30.9 g/dL (32.0-36.0); MEAN CORPUSCULAR VOLUME 72.9 fL (80.0-94.0); MONOCYTES # (AUTO) 0.6 10^3/uL (0.0-1.0); MONOCYTES % (AUTO) 10.5 %; NEUTROPHILS # (AUTO) 3.5 10^3/uL (1.5-6.6); NEUTROPHILS % (AUTO) 66.2 %; PLT - PLATELET COUNT 152 10^3/uL (130-450); RED CELL DISTRIBUTION WIDTH 17.1 % (12.0-15.0); WHITE BLOOD COUNT 5.2 x10^3/uL (4.8-10.8)
[2020-11-10 15:25] LABS: ALBUMIN 3.8 g/dL (3.2-5.5); ALBUMIN/GLOBULIN RATIO 1.4 (1.0-2.2); BILIRUBIN,TOTAL 1.7 mg/dL (0.2-1.0); CALCIUM 9.4 mg/dL (8.5-10.3); TOTAL PROTEIN 6.5 g/dL (6.7-8.2)
== END 2020-11-10 09:37 | disposition home or self-care (01) ==
LOC: LAB.S 09:36
PROVIDERS: ATTEND Internal Medicine Medical Oncology
DX: C61 Malignant neoplasm of prostate (principal)
CPT/HCPCS: 36415; 80053; 84153; 85025

== ENCOUNTER 2021-01-30 13:45 | Outpatient (CLI) | payer MEDICARE, BC | END 2021-01-30 13:46 | disposition home or self-care (01) | LOC: COV 13:45 | PROVIDERS: ATTEND Internal Medicine Sleep Medicine | DX: Z01.812 Encounter for preprocedural laboratory examination (principal); G47.33 Obstructive sleep apnea (adult) (pediatric); Z20.822 Contact with and (suspected) exposure to COVID-19 ==

== ENCOUNTER 2021-04-04 09:12 | Outpatient (CLI) | payer MEDICARE, BC ==
[2021-04-04 15:58] LABS: ALBUMIN 3.8 g/dL (3.2-5.5); ALBUMIN/GLOBULIN RATIO 1.5 (1.0-2.2); BILIRUBIN,TOTAL 2.1 mg/dL (0.2-1.0); CALCIUM 9.1 mg/dL (8.5-10.3); CREATININE 0.9 mg/dL (0.6-1.2); POTASSIUM 3.5 mmol/L (3.5-5.0); TOTAL PROTEIN 6.3 g/dL (6.7-8.2)
[2021-04-04 16:23] LABS: THYROID STIMULATING HORMONE 1.8 uIU/mL (0.34-5.60)
== END 2021-04-04 09:13 | disposition home or self-care (01) ==
LOC: LAB.S 09:12
PROVIDERS: ATTEND Internal Medicine Medical Oncology
DX: C61 Malignant neoplasm of prostate (principal); I48.0 Paroxysmal atrial fibrillation
CPT/HCPCS: 36415; 80053; 83735; 84153; 84443

== ENCOUNTER 2021-05-06 08:25 | Outpatient (CLI) | payer MEDICARE, BC ==
[2021-05-06 15:57] LABS: BASOPHILS # (AUTO) 0.1 10^3/uL (0.0-0.1); EOSINOPHILS # (AUTO) 0.3 10^3/uL (0.0-0.7); EOSINOPHILS % (AUTO) 5.5 %; HCT - HEMATOCRIT 36.9 % (42.0-52.0); HGB - HEMOGLOBIN 11.1 g/dL (14.0-18.0); LYMPHOCYTES # (AUTO) 1.1 10^3/uL (1.5-3.5); MEAN CORPUSCULAR HEMOGLOBIN 22.1 pg (27.0-31.0); MEAN CORPUSCULAR HGB CONC 30.1 g/dL (32.0-36.0); MEAN CORPUSCULAR VOLUME 73.4 fL (80.0-94.0); MONOCYTES # (AUTO) 0.6 10^3/uL (0.0-1.0); MONOCYTES % (AUTO) 10.7 %; NEUTROPHILS # (AUTO) 3.2 10^3/uL (1.5-6.6); NEUTROPHILS % (AUTO) 61.6 %; PLT - PLATELET COUNT 160 10^3/uL (130-450); RED BLOOD COUNT 5.03 10^6/uL (4.70-6.10); RED CELL DISTRIBUTION WIDTH 17.8 % (12.0-15.0); WHITE BLOOD COUNT 5.3 x10^3/uL (4.8-10.8)
[2021-05-06 16:35] LABS: ALBUMIN 3.8 g/dL (3.2-5.5); ALBUMIN/GLOBULIN RATIO 1.7 (1.0-2.2); BILIRUBIN,TOTAL 2.2 mg/dL (0.2-1.0); CALCIUM 9.1 mg/dL (8.5-10.3); CREATININE 0.9 mg/dL (0.6-1.2); POTASSIUM 3.8 mmol/L (3.5-5.0); TOTAL PROTEIN 6.1 g/dL (6.7-8.2)
== END 2021-05-06 08:26 | disposition home or self-care (01) ==
LOC: LAB.S 08:25
PROVIDERS: ATTEND Internal Medicine Medical Oncology
DX: C61 Malignant neoplasm of prostate (principal)
CPT/HCPCS: 36415; 80053; 84153; 85025

== ENCOUNTER 2023-08-29 10:08 | Outpatient (CLI) | payer MEDICARE, BC | END 2023-08-29 10:09 | disposition home or self-care (01) | LOC: LAB.S 10:08 | PROVIDERS: ATTEND Registered Nurse | DX: N39.0 Urinary tract infection, site not specified (principal); R10.9 Unspecified abdominal pain | CPT/HCPCS: 87040; 87086 ==

== ENCOUNTER 2024-02-07 07:00 | Outpatient (CLI) | payer MEDICARE, BC ==
--- NOTE | 2024-02-07 16:42 | XRAY Report ---
PROCEDURE: Lumbar Spine 2-3V INDICATIONS: LUMBAR BACK PAIN TECHNIQUE: 3 views of the lumbar spine were acquired. COMPARISON: None. FINDINGS: Bones: 5 [id number] vertebrae are present. There is normal bony alignment. No vertebral body compression fractures. No suspicious bony lesions. Multilevel degenerative changes including disc a nd foraminal narrowing most severe at L5-S1. Soft tissues: Overlying bowel gas pattern is normal. No suspicious soft tissue calcifications. IMPRESSION: Degenerative changes most severe at L5-S1. Reviewed by: Kortney Tello MD on 02/07/2024 4:41 PM PDT Approved by: Kortney Tello MD on 02/07/2024 4:41 PM PDT Station ID: [id number]
== END 2024-02-07 23:59 | disposition home or self-care (01) ==
LOC: DI.S 07:00
PROVIDERS: ATTEND Registered Nurse
DX: M47.817 Spondylosis without myelopathy or radiculopathy, lumbosacral region (principal)

== ENCOUNTER 2024-02-11 09:44 | Emergency (ER) | payer MEDICARE, BC ==
--- NOTE | 2024-02-11 10:39 | ED Physician Documentation ---
PD HPI BACK PAIN - Stated complaint Stated Complaint: BACK PX, DOWN LEG - Chief complaint Chief Complaint: Back Pain - History obtained from History obtained from: Patient - History of Present Illness Timing - onset: How many days ago (6) Timing - duration: Days (6) Timing - details: Gradual onset (no abrupt onset. He had been doing gardening with bending and pulling and had back pain later and next day that has increased and worsened despite Rx with NSAIDs, robaxin and hydrocodone.), Still present Location: Lower, Left (but also right side hurting the past day or so) Quality: Pain, Sharp (particularly with certain movements.) Associated symptoms: Numbness (intermittent feeling of tingling down left leg. No weakness per se.). No: Fever, Weakness, Incontinent of urine Improves with: Rest. No: Meds (he had not noted improvement with Rx [facility].) Worsened by: Movement, Twisting Contributing factors: Twisting (bending and twisting doing gardening and yard chores the days prior to onset.). No: Trauma Similar symptoms before: Has not had sx before Recently seen: Clinic (seen at [facility] days ago and Rx Robaxin and hydrocodone with 3 days of steroid as well. Pt states not improved with these. Pain worse.) Review of Systems Constitutional: denies: Fever, Chills : denies: Incontinent Skin: reports: Rash (had rash about 2 weeks ago left leg anterolateral thigh to lateral lower leg, which was itchy at the time, with small clustered blisters. Minimal pain. Current pain is in same area.) Neurologic: denies: Focal weakness PD PAST MEDICAL HISTORY - Past Medical History Past Medical History: Yes Cardiovascular: VT, Atrial fibrillation Respiratory: None Neuro: TIA Endocrine/Autoimmune: None GI: None : Benign prostate hypertrophy, Other (porstate cancer) HEENT: None Psych: None Musculoskeletal: None Derm: None - Past Surgical History Past Surgical History: Yes Cardiovascular: Coronary stent HEENT: Other - Present Medications Home Medications: Ambulatory Orders Medication Instructions Recorded Confirmed Apixaban [Eliquis] 5 mg PO BID 12/19/18 02/11/24 Abiraterone Acetate 1,000 mg PO DAILY 02/11/24 02/11/24 Atorvastatin Calcium [Lipitor] 80 mg PO HS 02/11/24 02/11/24 Ezetimibe [Zetia] 10 mg ORAL DAILY 02/11/24 02/11/24 Lidocaine Patch 5% [Lidoderm Patch] 1 patch TOP DAILY PRN #10 patch 02/11/24 Metoprolol Succinate [Toprol Xl] 12.5 mg PO BID 02/11/24 02/11/24 Pantoprazole [Protonix] 40 mg PO DAILY 02/11/24 02/11/24 Potassium Chloride 8 meq PO DAILY 02/11/24 02/11/24 dexAMETHasone [Decadron] 4 mg PO DAILY #5 tablet 02/11/24 methocarbamoL [Methocarbamol] 500 mg PO Q8HR PRN 02/11/24 02/11/24 oxyCODONE [Roxicodone] 5 mg PO Q6H PRN #25 tablet 02/11/24 valACYclovir [Valtrex] 1,000 mg PO TID #15 tablet 02/11/24 - Allergies Allergies/Adverse Reactions: Allergies Allergy/AdvReac Type Severity Reaction Status Date / Time Anesthetics - Amide Type - Allergy Anaphylaxis Verified 02/11/24 09:59 Select A [Anesthetics - Amide Type] Anesthetics - Mercedes Type- Allergy Anaphylaxis Verified 02/11/24 09:59 Parabens Penicillins Allergy Unknown Verified 02/11/24 09:59 - Social History Does the pt smoke?: No Smoking Status: Never smoker Does the pt drink ETOH?: Yes Does the pt have substance abuse?: No - Immunizations Immunizations are current?: Yes - POLST Patient has POLST: No POLST Status: Full Code PD ED PE NORMAL - Vitals Vital signs reviewed: Yes - General General: Alert and oriented X 3, Well developed/nourished - Cardiac Cardiac: RRR, No murmur - Respiratory Respiratory: No respiratory distress, Clear bilaterally - Abdomen Abdomen: Soft, Non tender - Derm Derm: Normal color, Warm and dry - Neuro Neuro: No motor deficit, No sensory deficit, Other (normal patellar reflexes. ) Results - Vitals Vitals: Vital Signs - 24 hr 02/11/24 02/11/24 02/11/24 09:53 10:22 13:01 Temperature 36.6 C Heart Rate 76 116 H 59 L Respiratory 20 18 16 Rate Blood Pressure 133/67 H 137/75 H 128/82 H O2 Saturation 98 97 96 02/11/24 13:56 Temperature Heart Rate 57 L Respiratory 12 Rate Blood Pressure 133/99 H O2 Saturation 96 Oxygen O2 Source Room air - Rads (name of study) lumbar CT Relevant Findings:: Prelim report reviewed (multilevel mild disc disease with mild foraminal narrowing. No central canal narrowing. no osseous abnormalities. ), EMP independent interpretation of test PD Medical Decision Making - ED course Complexity details: reviewed results (pt has severe back pain down left leg, and moving to right leg now too. No weakness nor loss bladder function. Recent rash in same area. Given prior prostate cancer, I feel ensuring no bony lesions is appropriate with CT scan. This was without significant abnormalities (age related mild disc).), considered differential (no forceful injury. Was doing gardening and presume has strain back with some nerve irritation. However with some nerve root numbness left leg. Has residual red bumps from rash 2 weeks ago in nverve distribution. I believe has resurging shingles. ), d/w patient Departure - Departure Disposition: 01 Home, Self Care Clinical Impression: Low back pain, Radiculitis, Neuropathy due to herpes zoster, History of prostate cancer Condition: Stable Record reviewed to determine appropriate education?: Yes Follow-Up: Cece Burks ARNP [Primary Care Provider] - Prescriptions: dexAMETHasone [Decadron] 4 mg PO DAILY #5 tablet Lidocaine Patch 5% [Lidoderm Patch] 1 patch TOP DAILY PRN #10 patch PRN Reason: pain oxyCODONE [Roxicodone] 5 mg PO Q6H PRN #25 tablet PRN Reason: Pain valACYclovir [Valtrex] 1,000 mg PO TID #15 tablet Comments: Your CT scan shows diffuse arthritic changes and some mild disc bulging at most levels but none that appear significant enough to be causing nerve impingement per se. No signs of bony lesions nor compression fractures etc. At this point I would presume some muscular type of back pain but also there is likely to be an element of nerve inflammation presumed related to a shingles episode. The nerve irritation can persist for several weeks or so after the shingles outbreak. Likely a combination of the 2 factors with some flareup from the muscle back use from gardening etc. I would treat this with the heat and stretching and massage type interventions for the back presuming some muscular irritation. Decadron steroid anti-inflammatory for 5 more days. Also continue with the methocarbamol muscle relaxant 2-3 times daily. I would also add valacyclovir antiviral as it does sound like a shingles rash that you would had and likely still some viral load with the persistent pain. Add Tylenol 500 to 650 mg 4 times daily for pain. To that add oxycodone every 6-8 hours if needed for worse pain. I sent your prescriptions to [facility] in [place]. Recheck if not improving well over the next several days and your pain is in a reasonable level with the medication in the meantime. Discharge Date/Time: 02/11/24 14:18
[2024-02-11] MEDS: valACYclovir 500 MG TABLET PO STA (12:07)
[2024-02-11] MEDS: HYDROmorphone 1 MG/ML CARPUJECT IVP STA (12:07)
[2024-02-11] MEDS: KETOROLAC 15 MG/ML VIAL IVP STA (12:08)
[2024-02-11] MEDS: DEXAMETHASONE 10 MG/ML VIAL IVP STA (12:08)
--- NOTE | 2024-02-11 12:55 | CT Report ---
PROCEDURE: Lumbar Spine WO INDICATIONS: new lumbar back pain to left, h/o prostate CA TECHNIQUE: Noncontrast 3 mm thick sections acquired from the T12 level to the sacrum. Sagittal and coronal refo rmats were constructed. For radiation dose reduction, the following was used: automated exposure co ntrol, adjustment of mA and/or kV according to patient size. COMPARISON: Radiograph February 07, 2024 FINDINGS: Image quality: Excellent. Bones: There is normal bony alignment. No acute vertebral body compression fractures. No suspiciou s lytic or blastic bony lesions. Central spinal caliber is of normal overall caliber. No pars defec ts. T12-L1: Normal in appearance. L1-L2: Normal in appearance. L2-L3: Left asymmetrical disc bulge resulting in mild left lateral recess soft tissue narrowing. N o significant bony foraminal narrowing L3-L4: Broad disc bulge resulting in left greater than right lateral recess narrowing. No significa nt foraminal narrowing. L4-L5: Mild disc height loss with broad disc bulge resulting in mild spinal canal stenosis. Facet a rthrosis results in mild right greater than left foraminal narrowing. L5-S1: Mild disc height loss with small disc bulge resulting in mild spinal canal stenosis. No sign ificant foraminal narrowing. Soft tissues: No retroperitoneal masses or hematomas. Visualized aorta is normal in caliber. Post c hanges of the prostate bed with metallic beads located within the prostate. IMPRESSION: No concerning osseous lesion is identified No bony spinal canal narrowing. There is some mild osseous foraminal narrowing. Multilevel disc bulges resulting in lateral recess narrowing which could be further delineated by MRI if clinically warranted. Postsurgical changes of the prostate Reviewed by: Faizan Law MD on 02/11/2024 11:54 AM JANA Approved by: Faizan Law MD on 02/11/2024 11:54 AM JANA Station ID: [id number]
[2024-02-11 13:04] VITALS: O2SAT 96
[2024-02-11 14:02] VITALS: BP 133/99
[2024-02-11] MEDS: oxyCODONE 5 MG TABLET PO STA (14:05)
== END 2024-02-11 14:18 | disposition home or self-care (01) ==
LOC: ED 09:44
DX: B02.9 Zoster without complications (principal); M54.10 Radiculopathy, site unspecified; M54.50 Low back pain, unspecified; Z85.46 Personal history of malignant neoplasm of prostate; I48.91 Unspecified atrial fibrillation; Z79.899 Other long term (current) drug therapy; Z79.01 Long term (current) use of anticoagulants
CPT/HCPCS: 72131; 96374; 96375; 99284; A9270; J1170

== ENCOUNTER 2024-02-27 07:05 | Emergency (ER) | payer MEDICARE, BC ==
[2024-02-27 08:29] LABS: BASOPHILS % (AUTO) 0.5 %; EOSINOPHILS # (AUTO) 0.2 10^3/uL (0.0-0.7); EOSINOPHILS % (AUTO) 2.9 %; HCT - HEMATOCRIT 36.8 % (42.0-52.0); HGB - HEMOGLOBIN 11.5 g/dL (14.0-18.0); LYMPHOCYTES % (AUTO) 17.9 %; MEAN CORPUSCULAR HGB CONC 31.3 g/dL (32.0-36.0); MEAN CORPUSCULAR VOLUME 73.5 fL (80.0-94.0); MONOCYTES # (AUTO) 0.6 10^3/uL (0.0-1.0); MONOCYTES % (AUTO) 10.6 %; NEUTROPHILS # (AUTO) 3.7 10^3/uL (1.5-6.6); NEUTROPHILS % (AUTO) 67.9 %; PLT - PLATELET COUNT 149 10^3/uL (130-450); RED BLOOD COUNT 5.01 10^6/uL (4.70-6.10); RED CELL DISTRIBUTION WIDTH 17.9 % (12.0-15.0); WHITE BLOOD COUNT 5.5 x10^3/uL (4.8-10.8)
[2024-02-27 08:48] LABS: ALBUMIN 3.6 g/dL (3.2-5.5); ALBUMIN/GLOBULIN RATIO 1.6 (1.0-2.2); BILIRUBIN,TOTAL 2.1 mg/dL (0.2-1.0); CALCIUM 9.6 mg/dL (8.5-10.3); CREATININE 0.8 mg/dL (0.6-1.3); POTASSIUM 3.9 mmol/L (3.5-4.5); TOTAL PROTEIN 5.8 g/dL (6.4-8.9)
[2024-02-27 10:15] VITALS: O2SAT 96
--- NOTE | 2024-02-27 11:08 | ED Physician Documentation ---
PD HPI LOWER EXT INJURY - Stated complaint Stated Complaint: SWOLLEN LEGS - Chief complaint Chief Complaint: Ext Problem - History obtained from History obtained from: Patient - Additional information Additional information: Patient presents for evaluation of intermittent bilateral lower extremity swelling.Has been ongoing for several days. Due to back issues has been sleeping in a recliner which seems to make the swelling worse. Swelling decreases when elevating feet at rest. Currently being treated for cancer. Review of Systems Constitutional: denies: Fever, Chills Cardiac: denies: Chest pain / pressure, Palpitations, Calf pain Respiratory: denies: Dyspnea, Cough GI: denies: Abdominal Pain, Nausea, Vomiting, Constipation, Diarrhea Musculoskeletal: reports: Extremity swelling. denies: Back pain, Extremity pain, Joint pain PD PAST MEDICAL HISTORY - Past Medical History Past Medical History: Yes Cardiovascular: SD, Atrial fibrillation Respiratory: None Neuro: TIA Endocrine/Autoimmune: None GI: None : Benign prostate hypertrophy, Other HEENT: None Psych: None Musculoskeletal: None Derm: None - Past Surgical History Past Surgical History: Yes Cardiovascular: Coronary stent HEENT: Other - Present Medications Home Medications: Ambulatory Orders Medication Instructions Recorded Confirmed Apixaban [Eliquis] 5 mg PO BID 12/19/18 02/27/24 Abiraterone Acetate 1,000 mg PO DAILY 02/11/24 02/27/24 Atorvastatin Calcium [Lipitor] 80 mg PO HS 02/11/24 02/27/24 Ezetimibe [Zetia] 10 mg ORAL DAILY 02/11/24 02/27/24 Metoprolol Succinate [Toprol Xl] 12.5 mg PO BID 02/11/24 02/27/24 Pantoprazole [Protonix] 40 mg PO DAILY 02/11/24 02/27/24 Potassium Chloride 8 meq PO DAILY 02/11/24 02/27/24 dexAMETHasone [Decadron] 4 mg PO DAILY #5 tablet 02/11/24 02/27/24 Gabapentin [Neurontin] 100 mg PO ONCE 02/27/24 02/27/24 - Allergies Allergies/Adverse Reactions: Allergies Allergy/AdvReac Type Severity Reaction Status Date / Time Anesthetics - Amide Type - Allergy Anaphylaxis Verified 02/27/24 07:21 Select A [Anesthetics - Amide Type] Anesthetics - Mercedes Type- Allergy Anaphylaxis Verified 02/27/24 07:21 Parabens Penicillins Allergy Unknown Verified 06/03/24 07:21 - Social History Does the pt smoke?: No Smoking Status: Never smoker Does the pt drink ETOH?: Yes Does the pt have substance abuse?: No - Immunizations Immunizations are current?: Yes - POLST Patient has POLST: No POLST Status: Full Code PD ED PE NORMAL - Vitals Vital signs reviewed: Yes - General General: Alert and oriented X 3, No acute distress, Well developed/nourished - HEENT HEENT: Atraumatic - Cardiac Cardiac: RRR, Strong equal pulses - Respiratory Respiratory: No respiratory distress, Clear bilaterally - Abdomen Abdomen: Soft, Non tender, Non distended - Derm Derm: Normal color, Warm and dry, No rash - Extremities Extremities: No deformity, No tenderness to palpate, Normal ROM s pain, Other (Trace pitting edema to mid calf bilaterally, negative Homans' sign) - Neuro Neuro: Alert and oriented X 3, 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 # (Auto) 0.6 Eos # (Auto) 0.2 Baso # (Auto) 0.0 Absolute Nucleated RBC 0.00 Nucleated RBC % 0.0 Sodium 140 Potassium 3.9 Chloride 108 Carbon Dioxide 28 Anion Gap 4.0 L BUN 22 H Creatinine 0.8 Estimated GFR (MDRD) 93 Glucose 93 Calcium 9.6 Total Bilirubin 2.1 H AST 22 ALT 25 Alkaline Phosphatase 64 Total Protein 5.8 L Albumin 3.6 Globulin 2.2 Albumin/Globulin Ratio 1.6 PD Medical Decision Making - ED course Complexity details: reviewed results, re-evaluated patient, considered differential, d/w patient, d/w family ED course: Intermittent lower extremity swelling for several days. Laboratory work is unremarkable. 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 After waiting in the ER for several hours patient stated that he would like to go home and does not want to stay for ultrasound imaging. Patient was advised to elevate his lower extremities, Oand to follow-up with his primary care doctor and if he continues to experience swelling recommended coming back to the ER for ultrasound of lower extremities. Departure - Departure Disposition: 01 Home, Self Care Clinical Impression: Swelling of lower extremity Condition: Stable Instructions: ED Edema Legs Bilateral Comments: Your laboratory work today was normal. If you continue to experience swelling I would recommend returning for ultrasound. At home elevate your legs above heart level to help decrease swelling. Forms: PCP List Discharge Date/Time: 02/27/24 11:13
[2024-02-27 11:16] VITALS: BP 110/79
== END 2024-02-27 11:13 | disposition home or self-care (01) ==
LOC: ED 07:05
DX: M79.89 Other specified soft tissue disorders (principal); I48.91 Unspecified atrial fibrillation; Z86.73 Personal history of transient ischemic attack (TIA), and cerebral infarction without residual deficits; I25.2 Old myocardial infarction; Z79.01 Long term (current) use of anticoagulants; Z79.899 Other long term (current) drug therapy
CPT/HCPCS: 36415; 80053; 85025; 99283

== ENCOUNTER 2024-04-23 07:08 | Outpatient (CLI) | payer MEDICARE, BC ==
[2024-04-23 15:23] LABS: BASOPHILS # (AUTO) 0.1 10^3/uL (0.0-0.1); BASOPHILS % (AUTO) 1.1 %; EOSINOPHILS # (AUTO) 0.2 10^3/uL (0.0-0.7); EOSINOPHILS % (AUTO) 3.6 %; HCT - HEMATOCRIT 36.5 % (42.0-52.0); LYMPHOCYTES # (AUTO) 1.5 10^3/uL (1.5-3.5); LYMPHOCYTES % (AUTO) 25.8 %; MEAN CORPUSCULAR HGB CONC 30.1 g/dL (32.0-36.0); MEAN CORPUSCULAR VOLUME 76.4 fL (80.0-94.0); MEAN PLATELET VOLUME 13.6 fL (7.4-11.4); MONOCYTES # (AUTO) 0.6 10^3/uL (0.0-1.0); MONOCYTES % (AUTO) 11.1 %; NEUTROPHILS # (AUTO) 3.2 10^3/uL (1.5-6.6); NEUTROPHILS % (AUTO) 57.7 %; PLT - PLATELET COUNT 180 10^3/uL (130-450); RED BLOOD COUNT 4.78 10^6/uL (4.70-6.10); RED CELL DISTRIBUTION WIDTH 17.6 % (12.0-15.0); WHITE BLOOD COUNT 5.6 x10^3/uL (4.8-10.8)
[2024-04-23 15:26] LABS: ALBUMIN 3.9 g/dL (3.2-5.5); ALBUMIN/GLOBULIN RATIO 1.8 (1.0-2.2); ALKALINE PHOSPHATASE 64 IU/L (42-121); ALT ALANINE AMINOTRANSFERASE 22 IU/L (10-60); AST ASPARTATE AMINOTRANSFERASE 23 IU/L (10-42); BILIRUBIN,TOTAL 1.7 mg/dL (0.2-1.0); BUN - BLOOD UREA NITROGEN 19 mg/dL (6-20); CALCIUM 9.5 mg/dL (8.5-10.3); CARBON DIOXIDE - CO2 26 mmol/L (21-32); CHLORIDE 113 mmol/L (101-111); CHOL/HDL RATIO 2.8 (<5.0); CHOLESTEROL 135 mg/dL; CREATININE 0.8 mg/dL (0.6-1.3); GFR - MDRD 93 (>89); GLUCOSE 95 mg/dL (74-104); HDL CHOLESTEROL 49 mg/dL; LDL CHOLESTEROL,CALCULATED 78 mg/dL; LDL/HDL RATIO 1.6 (<3.6); POTASSIUM 4.1 mmol/L (3.5-4.5); SODIUM 144 mmol/L (135-145); TOTAL PROTEIN 6.1 g/dL (6.4-8.9); TRIGLYCERIDES 40 mg/dL; VLDL CHOLESTEROL 8 mg/dL
[2024-04-23 15:44] LABS: THYROID STIMULATING HORMONE 4.71 uIU/mL (0.34-5.60)
== END 2024-04-23 07:09 | disposition home or self-care (01) ==
LOC: LAB.S 07:08
PROVIDERS: ATTEND Internal Medicine Cardiovascular Disease
DX: I10 Essential (primary) hypertension (principal); E78.2 Mixed hyperlipidemia
CPT/HCPCS: 36415; 80053; 80061; 83721; 84443; 85025